=== PATIENT | male | born 1955 | race Caucasian/White ===

== ENCOUNTER 2024-08-24 09:53 | Outpatient (OUT) | payer MEDICARE, SELFPAY ==
[2024-08-24 10:21] LABS: Basophils Percent Auto 0.4 % (0.2-2.0); Eosinophils Absolute Auto 0.6 10^3/uL (0.0-0.7); Eosinophils Percent Auto 7.1 % (0.9-7.0); Hematocrit 44.3 % (42.0-54.0); Immature Granulocytes Abs Auto 0.03 10^3/uL (0.00-0.03); Immature Granulocytes Pct Auto 0.4 % (0.0-0.5); Lymphocytes Absolute Auto 0.8 10^3/uL (1.2-3.8); Lymphocytes Percent Auto 10.4 % (20.5-60.0); Mean Corpuscular HGB Conc 33.9 g/dL (29.9-35.2); Mean Corpuscular Hemoglobin 31.3 pg (25.9-34.0); Mean Corpuscular Volume 92.5 fL (80.0-94.0); Mean Platelet Volume 10.1 fL (9.5-13.5); Monocytes Absolute Auto 0.7 10^3/uL (0.3-0.8); Neutrophils Absolute Auto 5.7 10^3/uL (1.4-6.5); Neutrophils Percent Auto 72.7 % (43.0-75.0); Platelet Count 197 10^3/uL (150-450); Red Blood Count 4.79 10^6/uL (4.70-6.10); White Blood Count 7.8 10^3/uL (4.0-11.0)
[2024-08-24 10:36] LABS: Anion Gap 11.5; BUN Creatinine Ratio 16.3; Calcium 9.3 mg/dL (8.5-10.1); Carbon Dioxide 26.8 mmol/L (21.0-32.0); Chloride 109 mmol/L (98-107); Estimated GFR (African America >60 (>=60 mL/min/1.73m^2); Estimated GFR (Non-African Ame >60 (>=60 mL/min/1.73m^2); Glucose 120 mg/dL (74-106); Potassium 4.3 mmol/L (3.5-5.1); Sodium 143 mmol/L (136-145)
== END 2024-08-24 09:54 | disposition home or self-care (01) ==
PROVIDERS: PCP Nurse Practitioner Family; Visit Provider Internal Medicine Interventional Cardiology
DX: Z01.812 Encounter for preprocedural laboratory examination (principal); Z01.818 Encounter for other preprocedural examination
CPT/HCPCS: 36415; 80048; 85025

== ENCOUNTER 2024-09-06 20:24 | Emergency (ER) | payer MEDICARE, SELFPAY ==
[2024-09-06 20:36] VITALS: BP 148/88; PULSE 78; TEMP 36.8; O2SAT 98; BMI 28.8
--- NOTE | 2024-09-06 20:57 | CT_ITS ---
The [address] [address] Patient Name: VICKIE KING MRN: [id number] date: 1955 Sex: M Assigned Patient Location: ER Current Patient Location: ED.MAIN Accession/Order Number: [id number] Exam Date: 09/06/2024 21:18 Report Date: 09/06/2024 22:41 At the request of: CARLOS NORMAN Procedure: CT abdomen pelvis wo con EXAMINATION:CT abdomen pelvis wo con INDICATION:left renal colic COMPARISON:A report from a prior CT abdomen and pelvis dated 09/08/2008 is available for correlation. The images are not available for direct comparison. TECHNIQUE:Multiple thin section transaxial slices were acquired through the abdomen and pelvis without intravenous contrast. Coronal and sagittal reconstructed images were reviewed. Oral contrastWas not administered. FINDINGS: LOWER CHEST: Atelectasis and chronic interstitial scarring are present in the lung bases. LIVER: The liver is unremarkable. GALLBLADDER AND BILIARY SYSTEM: No obvious ductal dilation. No calcified stones. SPLEEN: The spleen is unremarkable. PANCREAS: The pancreas is unremarkable. ADRENAL GLANDS: The adrenal glands are unremarkable. KIDNEYS AND URETERS: There is mild left-sided hydronephrosis secondary to a 4 mm size calculus located at the left ureterovesical junction. There is no right hydronephrosis. The right ureter is within normal limits.Right renal cysts are present. Is a large cyst in the right upper kidney measuring 8.0 cm. There are nonobstructive bilateral intrarenal calculi. VASCULATURE: Ureters are within normal limits without obstructing urologic calcifications. PERITONEUM/RETROPERITONEUM: There is no free air or free fluid. There is mesenteric fat stranding in the root of the mesentery. This was described in previous report from 2007 and is chronic. LYMPH NODES: No suspicious lymphadenopathy. GASTROINTESTINAL TRACT: The bowel is normal in caliber.There is chronic colonic diverticulosis of the colon without acute inflammation.The appendix is visualized and is not inflamed. BLADDER: The urinary bladder is unremarkable. REPRODUCTIVE SYSTEM: Reproductive system is unremarkable. BODY WALL: There is a tiny fat-containing umbilical hernia. BONES: There is degenerative disc disease in the thoracolumbar spine. CT/CT abdomen pelvis wo con IMPRESSION: Mild left-sided hydronephrosis is present secondary to a 4 mm size calculus located at the left ureterovesical junction. Electronically authenticated by: DALILA IBARRA Date: 09/06/2024 22:41
--- NOTE | 2024-09-06 20:57 | ED.ABDPAIN1 ---
HPI - Abdominal Pain General Chief Complaint: Abdominal Pain Stated Complaint: kidney stone Time Seen by Provider: 09/06/24 20:55 Source: patient Mode of arrival: walk-in History of Present Illness HPI narrative: history of kidney stones. Presents complaining of left CVA pain within the hour associated with recurrent vomiting. No dysuria or hematuria or fever. Related Data Allergies Allergy/AdvReac Type Severity Reaction Status Date / Time No Known Drug Allergies Allergy Verified 09/06/24 20:36 Review of Systems ROS Status of ROS 10 or more systems reviewed and unremarkable except as noted in history and below Exam Constitutional Vital Signs, click to edit/add: Last Vital Signs Temp 98.3 F 09/06/24 20:36 Pulse 46 L 09/07/24 00:26 Resp 14 09/07/24 00:26 BP 144/75 H 09/07/24 00:26 Pulse Ox 97 09/07/24 00:26 O2 Del Method Room Air 09/07/24 00:26 Common normals: no apparent distress, average body habitus, oriented x3, no limitations, healthy appearing, alert and well nourished HENMT Common normals: normocephalic and head/scalp atraumatic Eye Common normals: EOMs intact bilaterally and conjunctivae normal Respiratory Common normals: normal respiratory effort, no retractions and no use of accessory muscles Back & Pelvis Other: left CVA tenderness Extremity Common normals: normal to inspection and full ROM Neuro Common normals: oriented x3, CN's II-XII intact bilaterally, moves all extremities and no focal motor deficits Psych Appearance: grossly normal Course Vital Signs Vital signs: Vital Signs Temperature 98.3 F 09/06/24 20:36 Pulse Rate 78 09/06/24 20:36 Respiratory Rate 18 09/06/24 20:36 Blood Pressure 148/88 H 09/06/24 20:36 Pulse Oximetry 98 09/06/24 20:36 Oxygen Delivery Method Room Air 09/06/24 20:36 Temperature 98.3 F 09/06/24 20:36 Pulse Rate 46 L 09/07/24 00:26 Respiratory Rate 14 09/07/24 00:26 Blood Pressure 144/75 H 09/07/24 00:26 Pulse Oximetry 97 09/07/24 00:26 Oxygen Delivery Method Room Air 09/07/24 00:26 MDM - Abdominal Pain MDM Narrative Medical decision making narrative: patient presents with left renal colic. intense pain and recurrent vomiting. Treated with opiates and toradol . CT with finding of 4mm stone at UVJ. Patient is feeling better at this point. Lactic elevated as expected. UA pending. UA without evidence of infection. Patient is now resting comfortably. Latic was elevated from recurrent vomiting. 2nd lactic pending after hydration. Anticipate discharge home once 2nd lactic results 2nd lactic returned and is normal. Patient resting comfortably after last treatment for pain. Discharged in improved condition Lab Data Labs: Lab Results 09/06/24 09/06/24 09/06/24 Range/Units 21:10 23:30 23:58 WBC 12.7 H (4.0-11.0) 10^3/uL RBC 4.79 (4.70-6.10) 10^6/uL Hgb 14.7 (14.0-18.0) g/dL Hct 43.2 (42.0-54.0) % MCV 90.2 (80.0-94.0) fL MCH 30.7 (25.9-34.0) pg MCHC 34.0 (29.9-35.2) g/dL RDW 12.9 (11.0-15.0) % Plt Count 184 (150-450) 10^3/uL MPV 10.2 (9.5-13.5) fL Neut % (Auto) 81.9 H (43.0-75.0) % Lymph % (Auto) 8.0 L (20.5-60.0) % [place] % (Auto) 7.5 (1.7-12.0) % Eos % (Auto) 2.2 (0.9-7.0) % Baso % (Auto) 0.2 (0.2-2.0) % Neut # (Auto) 10.4 H (1.4-6.5) 10^3/uL Lymph # (Auto) 1.0 L (1.2-3.8) 10^3/uL [place] # (Auto) 1.0 H (0.3-0.8) 10^3/uL Eos # (Auto) 0.3 (0.0-0.7) 10^3/uL Baso # (Auto) 0.0 (0.0-0.1) 10^3/uL Abs Immat Gran (auto) 0.03 (0.00-0.03) 10^3/uL Imm/Tot Granulo (auto) 0.2 (0.0-0.5) % Sodium 141 (136-145) mmol/L Potassium 3.7 (3.5-5.1) mmol/L Chloride 106 (98-107) mmol/L Carbon Dioxide 19.7 L (21.0-32.0) mmol/L Anion Gap 19.0 BUN 19.0 H (7.0-18.0) mg/dL Creatinine 1.22 (0.70-1.30) mg/dL Est GFR ( Amer) >60 (>=60 mL/min/1.73m^2) Est GFR (Non-Af Amer) 59 L (>=60 mL/min/1.73m^2) BUN/Creatinine Ratio 15.6 Glucose 119 H (74-106) mg/dL Lactate 3.2 H* 1.6 (0.4-2.0) mmol/L Calcium 9.2 (8.5-10.1) mg/dL Total Bilirubin 0.6 (0.2-1.0) mg/dL AST 46 H (15-37) U/L ALT 41 (16-63) U/L Alkaline Phosphatase 101 (46-116) U/L Total Protein 7.6 (6.4-8.2) g/dL Albumin 4.3 (3.4-5.0) g/dL Globulin 3.3 g/dL Albumin/Globulin Ratio 1.3 Urine Color Lt. yellow (YELLOW) Urine Clarity Clear (CLEAR) Urine pH 5.5 (5.0-9.0) Ur Specific [place] 1.020 (1.005-1.025) Urine Protein Negative (NEG/TRACE) mg/dL Urine Glucose (UA) Negative (NEGATIVE) mg/dL Urine Ketones Trace A (NEGATIVE) mg/dL Urine Occult Blood Large A (NEGATIVE) Urine Nitrite Negative (NEGATIVE) Urine Bilirubin Negative (NEGATIVE) Urine Urobilinogen 0.2 (0.2-1.0) EU/dL Ur Leukocyte Esterase Negative (NEGATIVE) Urine RBC 5-10 A (0-2) #/HPF Urine WBC None seen (NONE SEEN) #/HPF Ur Squamous Epith Cells Rare (NONE/RARE) #/LPF Urine Crystals Seen A (None Seen) #/HPF Amorphous Sediment Rare Urine Bacteria Trace A (NONE SEEN) #/HPF Urine Casts None seen (NONE SEEN) #/LPF Urine Mucus None seen (NONE SEEN) Ur Culture Indicated? No Imaging Data Abdominal x-ray: Radiologist's impression: ITS Impressions Abdomen/Pelvis CT 09/06/24 20:57 IMPRESSION: Mild left-sided hydronephrosis is present secondary to a 4 mm size calculus located at the left ureterovesical junction. Electronically authenticated by: DALILA IBARRA Date: 09/06/2024 22:41 Chest x-ray: Radiologist's impression: ITS Impressions Abdomen/Pelvis CT 09/06/24 20:57 IMPRESSION: Mild left-sided hydronephrosis is present secondary to a 4 mm size calculus located at the left ureterovesical junction. Electronically authenticated by: DALILA IBARRA Date: 09/06/2024 22:41 Discharge Plan Discharge Chief Complaint: Abdominal Pain Clinical Impression: Calculus of kidney Patient Disposition: Home, Self-Care Print Language: Vietnamese Instructions: Kidney Stones (ED) Referrals: KEIKO HADDAD [Primary Care Provider] - 1 week
[2024-09-06 21:17] LABS: Basophils Percent Auto 0.2 % (0.2-2.0); Eosinophils Absolute Auto 0.3 10^3/uL (0.0-0.7); Eosinophils Percent Auto 2.2 % (0.9-7.0); Hematocrit 43.2 % (42.0-54.0); Hemoglobin 14.7 g/dL (14.0-18.0); Immature Granulocytes Abs Auto 0.03 10^3/uL (0.00-0.03); Immature Granulocytes Pct Auto 0.2 % (0.0-0.5); Mean Corpuscular Hemoglobin 30.7 pg (25.9-34.0); Mean Corpuscular Volume 90.2 fL (80.0-94.0); Mean Platelet Volume 10.2 fL (9.5-13.5); Monocytes Percent Auto 7.5 % (1.7-12.0); Neutrophils Absolute Auto 10.4 10^3/uL (1.4-6.5); Neutrophils Percent Auto 81.9 % (43.0-75.0); Platelet Count 184 10^3/uL (150-450); Red Blood Count 4.79 10^6/uL (4.70-6.10); Red Cell Distribution Width 12.9 % (11.0-15.0); White Blood Count 12.7 10^3/uL (4.0-11.0)
[2024-09-06] MEDS: 0.9 % SODIUM CHLORIDE 1,000 ML 999 ML IV (21:25)
[2024-09-06] MEDS: ONDANSETRON PF 4 MG/2 ML VIAL IV (21:26)
[2024-09-06] MEDS: FENTANYL CITRATE/PF 100 MCG/2 ML VIAL 50 MCG IV (21:34)
[2024-09-06] MEDS: KETOROLAC TROMETHAMINE 30 MG/ML VIAL IVP (21:34)
[2024-09-06 21:44] LABS: Alanine Aminotransferase 41 U/L (16-63); Albumin Globulin Ratio 1.3; Albumin Level 4.3 g/dL (3.4-5.0); Alkaline Phosphatase 101 U/L (46-116); Aspartate Amino Transferase 46 U/L (15-37); BUN Creatinine Ratio 15.6; Bilirubin Total 0.6 mg/dL (0.2-1.0); Calcium 9.2 mg/dL (8.5-10.1); Carbon Dioxide 19.7 mmol/L (21.0-32.0); Chloride 106 mmol/L (98-107); Estimated GFR (African America >60 (>=60 mL/min/1.73m^2); Estimated GFR (Non-African Ame 59 (>=60 mL/min/1.73m^2); Globulin 3.3 g/dL; Glucose 119 mg/dL (74-106); Potassium 3.7 mmol/L (3.5-5.1); Sodium 141 mmol/L (136-145); Total Protein 7.6 g/dL (6.4-8.2)
[2024-09-06 21:45] LABS: Lactate/Lactic Acid 3.2 mmol/L (0.4-2.0)
[2024-09-06] MEDS: HYDROMORPHONE HCL 1 MG/ML CARTRIDGE IV (21:48)
[2024-09-06 21:53] VITALS: BP 129/72; PULSE 56; O2SAT 97
[2024-09-06 23:35] LABS: Bilirubin Urine NEGATIVE (NEGATIVE); Blood Urine LARGE (NEGATIVE); Clarity Urine CLEAR (CLEAR); Color Urine LT. YELLOW (YELLOW); Glucose Urine UA NEGATIVE (NEGATIVE); Ketones Urine TRACE mg/dL (NEGATIVE); Leukocyte Esterase Urine NEGATIVE (NEGATIVE); Nitrite Urine NEGATIVE (NEGATIVE); Protein Urine NEGATIVE (NEG/TRACE); Urobilinogen Urine 0.2 EU/dL (0.2-1.0); pH Urine 5.5 (5.0-9.0)
[2024-09-06 23:37] LABS: Urine Microscopic Indicated YES
[2024-09-06 23:42] LABS: Amorphous Sediment Urine RARE; Bacteria Urine TRACE #/HPF (NONE SEEN); Cast Seen? NONE SEEN #/LPF (NONE SEEN); Crystals Seen? Seen #/HPF (None Seen); Mucus Urine NONE SEEN (NONE SEEN); Squamous Epithelial Cell Urine RARE #/LPF (NONE/RARE); Urine Culture Indicated NO; WBC Urine NONE SEEN #/HPF (NONE SEEN)
[2024-09-07] MEDS: 0.9 % SODIUM CHLORIDE 1,000 ML 999 ML IV (00:20)
[2024-09-07] MEDS: PROMETHAZINE HCL 25 MG in 0.9 % SODIUM CHLORIDE 50 ML 204 MG IV (00:20)
[2024-09-07 00:21] LABS: Lactate/Lactic Acid 1.6 mmol/L (0.4-2.0)
[2024-09-07] MEDS: HYDROMORPHONE HCL 0.5 MG/0.5 ML SYRINGE IV (00:21)
[2024-09-07 00:26] VITALS: BP 144/75; PULSE 46; O2SAT 97
[2024-09-07] MEDS: ONDANSETRON 4 MG RAPDIS TABLET SL (01:24)
[2024-09-07] MEDS: HYDROCODONE/ACET 5-325 MG TABLET 4 TAB PO (01:25)
[2024-09-07 01:26] VITALS: BP 145/69; PULSE 50; O2SAT 97
--- OUTSIDE RECORDS SUMMARY | 2024-09-09 03:33 | XMS_ITS | CCD ---
Author Organization [facility] Care Team Providers Care Dental Coordinator Name Role Phone WAYLON PADILLA Referring Unavailable BRUHL, WAYLON Referring Unavailable NILL, DR JOHNSTON Consulting Unavailable NILL, DR JOHNSTON Admitting Unavailable BOO, SUDHA Primary Care Unavailable NILL, DR JOHNSTON Attending Unavailable CAMILA FAGAN Consulting Unavailable REQUEST, NONE LISTED Primary Care Unavaila ble BOO, SUDHA Attending Unavailable BOO, SUDHA Admitting Unavailable NILL, DR JOHNSTON Attending Unavailable NILL, DR JOHNSTON Consulting Unavailable REQUEST, DR RAMEY LISTED Primary Care Unavaila ble NILL, DR JOHNSTON Admitting Unavailable NILL, DR JOHNSTON Consulting Unavailable REQUEST, DR RAMEY LISTED Primary Care Unavaila ble NILL, DR JOHNSTON Admitting Unavailable NILL, DR JOHNSTON Attending Unavailable [place], EHAB Attending Unavailable Problems Active Problems Problem Classification Problem Date Documented Date Episodic/Chronic Coronary atherosclerosis and other heart disease (4 sources) Old myocardial infarction; Translations: [Atherosclerotic heart disease of n[place] coronary artery without angina pectoris] Onset: 2 Chronic Disorders of lipid metabolism (1 source) Pure hypercholesterolemia, unspecified; Translations: [PURE HYPERCHOLESTEROLEMIA UNSPEC] Onset: 2 Chronic Diverticulosis and diverticulitis (1 source) Diverticulosis of large intestine without perforation or abscess without bleeding; Translations: [DVRTCLOS LG INT NO PERF/ABSC W/O BL] Onset: 2 Chronic Hyperplasia of prostate (1 source) Benign prostatic hyperplasia without lower urinary tract symptoms; Translations: [BENIGN PROSTATIC HYPRPLASIA WO LUTS] Onset: 2 Chronic Nonspecific chest pain (2 sources) Other chest pain; Translations: [Other chest pain] Onset: 4 Episodic Unclassified (1 source) PERSONAL HISTORY OF COVID-19; Translations: [PERSONAL HISTORY OF COVID-19] Onset: 2 Unclassified (3 sources) CONTACT W/AND (SUSP) EXPOS COVID-19; Translations: [CONTACT W/AND (SUSP) EXPOS COVID-19] Onset: 1 Unclassified (1 source) 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; Translations: [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] Onset: 4 Viral infection (1 source) COVID-19; Translations: [COVID-19] Onset: 1 Past or Other Problems Problem Classification Problem Date Documented Date Episodic/Chronic Coronary atherosclerosis and other heart disease (1 source) Presence of coronary angioplasty implant and graft; Translations: [PRESENCE COR ANGPLSTY IMPLANT AND GRAFT] Onset: 11-15-2021 Episodic Other aftercare (1 source) 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; 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] Onset: 11-15-2021 Episodic Other and unspecified benign neoplasm (1 source) Benign neoplasm of rectum; Translations: [BENIGN NEOPLASM OF RECTUM] Onset: 11-15-2021 Episodic Other screening for suspected conditions (not mental disorders or infectious disease) (4 sources) Encounter for screening for malignant neoplasm of colon; Translations: [ENC SCREEN MALIG NEOPLASM COLON] Onset: 10-27-2021 Episodic Screening and history of mental health and substance abuse codes (1 source) Personal history of nicotine dependence; Translations: [PERSONAL HISTORY OF NICOTINE DEPEND] Onset: 11-15-2021 Episodic Unclassified (1 source) CONTACT W/AND (SUSP) EXPOS COVID-19; Translations: [CONTACT W/AND (SUSP) EXPOS COVID-19] Onset: 07-31-2021 Unclassified (1 source) 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; Translations: [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] Onset: 08-21-2024 Results Test Name Value Interpretation Reference Range Facility Office Visiton 08-21-2024 Follow-up visit [id number] Vickie King 1955 M Date Provider Department Center 08/21/2024 271-JOSE YOUNG CARD [facility] Family History Problem Relation Age of Onset Stroke Father Family Status - Relation Status Age at Father Level of Service:15681 [place] OFFICE/OUTPATIENT NEW HIGH MDM 60 MINUTES Normal [facility] Orders Onlyon 08-21-2024 Orders Only [id number] Vickie King 1955 M Date Provider Department Center 08/21/2024 HENRIETTA NICHOLE LORY [facility] Family History Problem Relation Age of Onset Stroke Father Family Status - Relation Status Age at Father Normal [facility] Reminderson 11-11-2021 Reminders - From: Kaci Stern LPN To: N - Clinical; Sent: 11/11/2021 08:00:09 EST Show up: 09/27/2031 08:00:00 EST Subject: colonoscopy recall Due Date/Time: 10/27/2031 08:00:00 EST Reminder/Recall Patient is due for screening colonoscopy 10/27/2031. Normal [facility] Ambulatory Clinical Summaryo n 11-10-2021 Ambulatory Clinical Summary {[id number] }[id number] Normal [facility] General Surgery Office/Clini c Noteon 11-10-2021 General Surgery Office/Clinic Note Chief Complaint post operative follow up HPI Staff 14 day post operative follow up post colonoscopy with rectal polypectomy. History of Present Illness 2 weeks s/p screening colonoscopy with rectal polypectomy, hyperplastic polyp; also moderated sigmoid diverticulosis; doing well, denies pain or blood in stools. Review of Systems ROS - Provider Constitutional: no fever, no sweats, no weight loss. Eyes: no glasses, no blurred vision, no visual loss. ENMT: no dentures, no hoarseness, no swallowing difficulties, no hearing loss, no ear infection(s), no nose bleeds. Cardiovascular: normal blood pressure, no chest pain, regular heartbeat, no heart murmur. Respiratory: no shortness of breath, no cough, no asthma, no wheezing. Gastrointestinal: no nausea, no vomiting, no diarrhea, no constipation, no blood in stool, no change in bowel habits, no abdominal pain, no hepatitis. Genitourinary: no kidney stones, no urine infection, no dysuria. Musculoskeletal: no pain, no weakness. Skin: no changing moles, no rash, no skin lumps. Neurologic: no seizures, no epilepsy, no headache. Psychiatric: no emotional or psychiatric problem. Heme/Lymph: no bleeding problems, no anemia, no blood clots, no transfusions. Allergy/Immunologic: no swollen lymph nodes/glands, no IV drug abuse. Other: Additional ROS info: Except as noted in the above Review of Systems and in the History of Present Illness, all other systems have been reviewed and are negative or noncontributory. Physical Exam Vitals & Measurements T: 36.2 ?C(Temporal Artery) Assessment/Plan 1. Diverticulosis of sigmoid colon (K57.30: Diverticulosis of large intestine without perforation or abscess without bleeding) recommend high fiber diet and daily fiber supplement; f/u screening colonoscopy in 10 years, call sooner if problems/questions. Follow-up No qualifying data available Problem List/Past Medical History Ongoing BPH (benign prostatic hyperplasia) CAD (coronary artery disease) Diverticulosis of sigmoid colon Erectile dysfunction Hx of heart artery stent Lumbago Myocardial infarction Screening for malignant neoplasm of colon Historical Kidney stone Tonsil Procedure/Surgical History Colonoscopy (10/27/2021), Placement of stent in cardiac conduit (2011), Tonsil (1963), Kidney stone. Medications Lipitor 80 mg Tab, 80 mg= 1 tab(s), Oral, Once a day (at bedtime) naproxen sodium 550 mg Tab, 550 mg= 1 tab(s), Oral, BID nitroglycerin 0.4 mg sublingual Tab, See Instructions, PRN sildenafil 50 mg Tab, See Instructions Xarelto 2.5 mg oral tablet, 2.5 mg= 1 tab(s), Oral, BID Ziac 2.5 mg-6.25 mg oral tablet, 1 tab(s), Oral, Daily Allergies No Known Allergies Social History Alcohol - Low Risk, 12/11/2013 Current, Beer, 1-2 times per month, 12/11/2013 Employment/School - Low Risk, 12/11/2013 Substance Abuse - Denies Substance Abuse, 06/30/2021 Tobacco - No Risk, 12/11/2013 Former smoker, quit more than 30 days ago Tobacco Use:., 06/30/2021 Family History Stroke: Father. Normal [facility] Comment on above: Result Comment: Elec tronically Signed By: STONE COLBY, Vickie Valentino\Date and Time Signed: 11/10/21 14:19 EST Pathology Noteon 11-02-2021 Pathology Note [id number]:1 27 Normal [facility] Outside Colonoscopyon 2020 Outside Colonoscopy [id number]: 127 Normal [facility] Lab Reportson 10-27-2021 Lab Reports [id number]:1 27 Normal [facility] Covid-19 PCR ([facility])on 10-07 SARS-CoV-2 (COVID-19) RNA SIERRA+probe Ql (Unsp spec) Not detected Normal NOT DETECTED [facility] Comment on above: Result Comment: This test is not yet approved or cleared by the [place] FDA. When there are no FDA-approved or cleared tests available, and other criteria are met, FDA can make tests available under an emergency access mechanism called an Emergency Use Authorization (EUA). The EUA for this test is supported by the [place] of Health and Human Service's (HHS's) declaration that circumstances exist to justify the emergency use of in vitro diagnostics for the detection and/or diagnosis of the virus that causes COVID-19. This EUA will remain in effect (meaning this test can be used) for the duration of the COVID-19 declaration justifying emergency of IVDs, unless it is terminated or revoked by FDA (after which the test may no longer be used). When diagnostic testing is negative, the possibility of a false negative should be considered in the context of a patient's recent exposures and the presence of clinical signs and symptoms consistent with SARS-CoV-2. Performed By: #### C VDTB #### [facility] [address] [place] [address] Dr. Cyndie Delgadillo Lab Reportson 08-03-2021 Lab Reports [id number]: 127 Normal [facility] Covid-19 PCR ([facility])on 07-08 SARS-CoV-2 (COVID-19) RNA SIERRA+probe Ql (Unsp spec) Detected Critically abnormal NOT DETECTED [facility] Comment on above: Result Comment: This test is not yet approved or cleared by the [place] FDA. When there are no FDA-approved or cleared tests available, and other criteria are met, FDA can make tests available under an emergency access mechanism called an Emergency Use Authorization (EUA). The EUA for this test is supported by the [place] of Health and Human Service's (HHS's) declaration that circumstances exist to justify the emergency use of in vitro diagnostics for the detection and/or diagnosis of the virus that causes COVID-19. This EUA will remain in effect (meaning this test can be used) for the duration of the COVID-19 declaration justifying emergency of IVDs, unless it is terminated or revoked by FDA (after which the test may no longer be used). Performed By: #### [facility] #### [facility] [address] [place] [address] Dr. Cyndie Delgadillo Consent for Procedure/Surger yon 07-01-2021 Consent for Procedure/Surgery [id number]:1 27 Normal [facility] Ambulatory Clinical Summaryo n 06-30-2021 Ambulatory Clinical Summary {[id number] }[id number] Normal [facility] General Surgery Office/Clini c Noteon 06-30-2021 General Surgery Office/Clinic Note HPI Staff New pt., referred by ANNETTE Aranda for screening colonoscopy . No family hx of colon ca. Patient is on Xarelto History of Present Illness 65 yo male with h/o CAD, s/p angioplasty with stenting in 2013, on Xarelto; hypercholesterolemia, htn, referred for colorectal screening; denies change in bms or blood in stools, no abdominal complaints; no previous colonoscopy or abdominal operations; on Xarelto and baby asa; no SBE prophylaxis, no fmhx of GI malignancy or IBD. Review of Systems PHQ Score Initial Depression Screen Score: 0 ROS - Provider Constitutional: no fever, no sweats, no weight loss. Eyes: no glasses, no blurred vision, no visual loss. ENMT: no dentures, no hoarseness, no swallowing difficulties, no hearing loss, no ear infection(s), no nose bleeds. Cardiovascular: high blood pressure, no chest pain, regular heartbeat, no heart murmur. Respiratory: no shortness of breath, no cough, no asthma, no wheezing. Gastrointestinal: no nausea, no vomiting, no diarrhea, no constipation, no blood in stool, no change in bowel habits, no abdominal pain, no hepatitis. Genitourinary: no kidney stones, no urine infection, no dysuria. Musculoskeletal: no pain, no weakness. Skin: no changing moles, no rash, no skin lumps. Neurologic: no seizures, no epilepsy, no headache. Psychiatric: no emotional or psychiatric problem. Heme/Lymph: no bleeding problems, no anemia, no blood clots, no transfusions. Allergy/Immunologic: no swollen lymph nodes/glands, no IV drug abuse. Other: Additional ROS info: Except as noted in the above Review of Systems and in the History of Present Illness, all other systems have been reviewed and are negative or noncontributory. Physical Exam Vitals & Measurements T: 36.4 ?C (Temporal Artery) HR: 73(Peripheral) RR: 16 BP: 130/82 SpO2: 97% HT: 177.8 cm HT: 177.80 cm WT: 99.1 kg WT: 99.1 kg BMI: 31.35 HEENT: normal conjunctiva, sclera clear, no scleral icterus, EOM intact, PERRLA, oral mucosa moist without lesions. Neck: trachea midline, no mass, symmetric, no thyromegaly or nodules, no adenopathy Respiratory: lungs CTA, respirations non labored. Cardiovascular: regular rate and rhythm, no murmur, no pedal edema or varicosities. Gastrointestinal: soft, non distended, no tenderness, no masses, no palpable hernias, diastasis recti no, no hepatosplenomegaly; normal bs Lymphatic: no cervical adenopathy, Musculoskeletal: normal gait, digits and nails without infection, nodes, cyanosis, clubbing. Skin: no rashes, no lesions, no ulcers, no subcutaneous nodules, induration. Psychiatric/Neuro: oriented to time, place, person, judgement normal, affect appropriate for age, insight intact, no focal deficits. Tests: review of old records completed, Discussed surgical options, risks, and possible complications with patient. Assessment/Plan 1. Screening for malignant neoplasm of colon (Z12.11: Encounter for screening for malignant neoplasm of colon) plan colonoscopy under anesthesia, informed consent obtained. hold Xarelto 2 days prior to procedure. Follow-up No qualifying data available Patient Education Colonoscopy, Adult, Care After, [id number] Problem List/Past Medical History Ongoing BPH (benign prostatic hyperplasia) CAD (coronary artery disease) Erectile dysfunction Hx of heart artery stent Lumbago Myocardial infarction Screening for malignant neoplasm of colon Historical Kidney stone Tonsil Procedure/Surgical History Placement of stent in cardiac conduit (2011), Tonsil (1963), Kidney stone. Medications Lipitor 80 mg Tab, 80 mg= 1 tab(s), Oral, Once a day (at bedtime) naproxen sodium 550 mg Tab, 550 mg= 1 tab(s), Oral, BID nitroglycerin 0.4 mg sublingual Tab, See Instructions, PRN sildenafil 50 mg Tab, See Instructions Xarelto 2.5 mg oral tablet, 2.5 mg= 1 tab(s), Oral, BID Ziac 2.5 mg-6.25 mg oral tablet, 1 tab(s), Oral, Daily Allergies No Known Allergies Social History Alcohol - Low Risk, 12/11/2013 Current, Beer, 1-2 times per month, 12/11/2013 Employment/School - Low Risk, 12/11/2013 Substance Abuse - Denies Substance Abuse, 06/30/2021 Tobacco - No Risk, 12/11/2013 Former smoker, quit more than 30 days ago Tobacco Use:., 06/30/2021 Family History Stroke: Father. Normal [facility] Comment on above: Result Comment: Elec tronically Signed By: STONE COLBY, Vickie Valentino\Date and Time Signed: 06/30/21 16:38 EDT Patient Educationon 06-30-20 Patient Education Radiology Colonoscopy, Adult, Care After This sheet gives you information about how to care for yourself after your procedure. Your doctor may also give you more specific instructions. If you have problems or questions, call your doctor. What can I expect after the procedure? After the procedure, it is common to have: ? A small amount of blood in your poop for 24 hours. ? Some gas. ? Mild cramping or bloating in your belly. Follow these instructions at home: General instructions ? For the first 24 hours after the procedure: ? Do not drive or use machinery. ? Do not sign important documents. ? Do not drink alcohol. ? Do your daily activities more slowly than normal. ? Eat foods that are soft and easy to digest. ? Take lkxd-wri-jfjsswg or prescription medicines only as told by your doctor. To help cramping and bloating: ? Try walking around. ? Put heat on your belly (abdomen) as told by your doctor. Use a heat source that your doctor recommends, such as a moist heat pack or a heating pad. ? Put a towel between your skin and the heat source. ? Leave the heat on for 20?30 minutes. ? Remove the heat if your skin turns bright red. This is especially important if you cannot feel pain, heat, or cold. You can get burned. Eating and drinking ? Drink enough fluid to keep your pee (urine) clear or pale yellow. ? Return to your normal diet as told by your doctor. Avoid heavy or fried foods that are hard to digest. ? Avoid drinking alcohol for as long as told by your doctor. Contact a doctor if: ? You have blood in your poop (stool) 2?3 days after the procedure. Get help right away if: ? You have more than a small amount of blood in your poop. ? You see large clumps of tissue (blood clots) in your poop. ? Your belly is swollen. ? You feel sick to your stomach (nauseous). ? You throw up (vomit). ? You have a fever. ? You have belly pain that gets worse, and medicine does not help your pain. Summary ? After the procedure, it is common to have a small amount of blood in your poop. You may also have mild cramping and bloating in your belly. ? For the first 24 hours after the procedure, do not drive or use machinery, do not sign important documents, and do not drink alcohol. ? Get help right away if you have a lot of blood in your poop, feel sick to your stomach, have a fever, or have more belly pain. This information is not intended to replace advice given to you by your health care provider. Make sure you discuss any questions you have with your health care provider. Document Released: 11/25/2011 Document Revised: 08/23/2018 Document Reviewed: 07/17/2017 HAUL Patient Education ? 2019 [facility] Physician Referralon 021 Physician Referral [id number]: 127 Normal [facility] CARDIAC STRESS TESTon 2018 CARDIAC STRESS TEST [address] [address] CARDIAC STRESS TEST PATIENT NAME: KRYSTLE KING : 1955 MED REC NO: [id number] ROOM: ACCOUNT NO: [id number] ADMIT DATE: 04/25/2019 PROVIDER: Lakisha Mitchell CARDIOVASCULAR DIAGNOSTIC DEPARTMENT DATE OF STUDY: 04/25/2019 ORDERING PROVIDER: Waylon Padilla MD PRIMARY CARE PROVIDER: None listed INTERPRETING PHYSICIAN: Lakisha Mitchell MD EXERCISE STRESS TEST REPORT Stress, exercise stress. INDICATIONS: Assessment of chest pain and/or chest discomfort. Assessment of a cardiac cause: Abnormal ECG. CLINICAL HISTORY: The patient is a 63-year-old man with known coronary artery disease. Previous cardiac history includes: CAD, stress test, cardiac catheterization, PTCA, myocardial infarction. Other previous history includes: Arthritis, alcohol, caffeine Symptoms just prior to testing include: None. Relevant medications: Bisoprolol. PROCEDURE: The patient performed treadmill exercise using a Kenrick protocol, completing 10:04 minutes and completing an estimated workload of 11.8 metabolic equivalents (METS). The test was terminated due to shortness of breath. The heart rate was 54 beats per minute at baseline and increased to 121 beats at peak exercise, which was 77% of the maximum predicted heart rate. The rest blood pressure was 108/76 mm/Hg and increased to 170/72 mm/Hg, which is a normal response. During the procedure, the patient developed fatigue and shortness of breath but denied chest discomfort. STRESS ECG RESULTS: The resting electrocardiogram demonstrated normal sinus rhythm without definitive ST-segment abnormalities suggestive of myocardial ischemia. At peak exercise and during recovery, the patient developed: No significant ST segment changes suggestive of myocardial ischemia with no premature atrial contractions (PACs) and no premature ventricular contractions (PVCs). IMPRESSION: 1. Only 77% of the maximum heart rate achieved. Heart rate response probably blunted by beta branden therapy. 2. No chest pain at peak exercise or during recovery. 3. No significant electrocardiographic evidence of myocardial ischemia during EKG monitoring without significant associated arrhythmias. Overall these results are most consistent with a low risk stress test. The sensitivity for detecting ischemia on this test may have been reduced due to the patient being on a beta branden. LAKISHA MITCHELL LARON/RACHEL_BECKY Job#: [id number] Doc#: Unknown CC: Waylon Padilla [facility] Encounters Encounter Date Encounter Type Care Provider Facility Start: 08-21-2024 End: 08-21-2024 ambulatory [facility] Start: 07-06-[address] TANVIR VACA REQUEST Facility:[facility] Start: 11-01-2021 Encounter for preprocedural laboratory examination DR VICKIE RITTER [facility] Start: 10-27-2021 End: 10-27-[address] VICKIE RITTER Facility:[facility] Start: 10-25-2021 End: 10-26-[address] VICKIE RITTER Facility:[facility] Start: 10-25-2021 End: 10-26-2021 Encounter for preprocedural laboratory examination DR VICKIE RITTER Facility:[facility] Start: 07-31-2021 End: 08-01-[address] VICKIE RITTER Facility:[facility] Start: 04-25-2019 End: 04-26-2019 Patient encounter procedure WAYLON PADILLA [facility] Procedures Date Procedure Procedure Detail Performing Clinician Start: 04-25-2019 Echo tthrc r-t 2d w/ wom-mode compl spec&colr d WAYLON PADILLA Start: 04-25-2019 Cv strs tst xers&/or rx cont ecg w/o i&r WAYLON PADILLA Payers Date Payer Category Payer Medicare [id number] 1960 Self-pay [id number] 1960 Unknown [id number] 1955 Unknown [id number] 2.16.8 [id number] 1955 Unknown [id number] 2.16.8 [id number] 1955 Unknown [id number] 2.16.84 [id number] 1955 Unknown [id number] 2.16.84 [id number] 1955 Unknown [id number] 2.16.84 [id number] 1955 Unknown [id number] 2.16.84 [id number] Progress note 08-21-2024 Note Date & Type Note Facility 08-21-2024 Note [facility] Cardiology Clinic Note Chief Complaint: New patient here to establish care for CAD. He has hx of PCI in 2013. Former [facility] cardiology patient. No recent testing/labs. He states when he had MD back in 2013 he had a burning in his chest. He's been feeling this a lot more often lately. He doesn't have the neck pain, like he did before. HPI: Vickie King is a 68 y.o. male With a history of coronary artery disease, prior PCI and stent placement of the right coronary artery here to establish care For the past several months he has noticed worsening epigastric burning that can occur at rest and without relation to food or drink. This feels the same as it did prior to his previous PCI and stent placement. The difference as he has no radiation to the neck. And prior to his stent this burning used to occur with exertion. He denies worsening shortness of breath. He has intermittent palpitations. He has no significant lightheadedness, dizziness or syncope. No orthopnea, no paroxysmal: Dyspnea, no lower extremity edema. Social history: He does not drink any caffeinated beverages. He drinks per his description 6-8 alcoholic beverages a week. He denies illicit drugs. Cardiology ROS: Review of Systems Cardiovascular: Positive for chest pain ( burning ). All other systems reviewed and are negative. Past Medical History He has no past medical history on file. Surgical History He has no past surgical history on file. Social History He has no history on file for tobacco use, alcohol use, and drug use. Family History No family history on file. Allergies Patient has no allergy information on record. Medications No current outpatient medications on file. Last Recorded Vitals BP (!) 130/92 (BP Location: Right arm, Patient Position: Sitting) Pulse 66 Ht 1.803 m (5' 11 ) Wt 95.7 kg (211 lb) SpO2 95% BMI 29.43 kg/m??? Physical Examination: GENERAL: alert and oriented x3, well developed, in no acute distress. HEAD: atraumatic, normocephalic. EYES: STEPH, EOMI. NECK: trachea midline, no JVD present, no carotid bruits present. CARDIAC: S1, S2 present. RRR. No murmur, rubs, or gallops. RESPIRATORY: CTAB, no increased effort of breathing, no rales, rhonchi, or wheezing. ABDOMEN: soft, nontender, nondistended. EXTREMITIES: no lower extremity edema, peripheral pulses are 2+ bilaterally. No rash/skin discoloration present. NEURO: strength/sensation equal and symmetric in bilateral upper and lower extremities. PSYCH: appropriate mood, affect, and judgement. INVESTIGATIONS: Stress echocardiogram 12/09/2013: Negative for ischemia at submaximal heart rate. [facility] - Cardiology Procedure VICKIE KING : 1955 AGE: 58 SEX: M ACCTNUM: [id number] HOSP SVC: CVD LOCATION: [facility] ATTENDING PHYSICIAN: Omar Birmingham M.D. DATE OF PROCEDURE: 12/12/2013 PROCEDURE PERFORMED: PTCA/drug eluting stent deployment to right coronary artery. CLINICAL HISTORY: The patient is a 58-year-old gentleman who underwent recent evaluation, including heart catheterization at [facility], after presenting with symptoms in keeping with crescendo/unstable angina. Heart catheterization revealed evidence of a 95% hazy, mid right coronary artery stenosis. The patient was stabilized with medical therapy, including intravenous unfractionated heparin, intravenous nitroglycerin, beta blockers, statins, aspirin and Plavix and transferred to [facility] for catheter based intervention. EQUIPMENT USED: 6-Maltese Amplatz left 0.75 guide catheter, 014 luge guidewire, 3.0 x 15 millimeter Emerge balloon, 3.5 x 20 millimeter PROMUS drug-eluting stent. TECHNIQUE: Under usual sterile conditions, a 6-Maltese sheath was placed in the right radial artery. The 6-Maltese Amplatz left 0.75 guide catheter was advanced to the right coronary ostium , under fluoroscopic guidance, and guide shots obtained. The guide shots confirmed a 95% hazy mid right coronary artery stenosis, with JORDON grade 2 antegrade flow. The patient had already received 600 mg of Plavix, as well as aspirin orally and a weight adjusted Angiomax bolus was given, followed by Angiomax infusion. The 014 luge guidewire was advanced into the right coronary system across the mid vessel stenosis and distally in the vessel without much difficulty. With the guidewire in place, a 3.0 x 15 millimeter Emerge balloon was advanced, positioned across the stenotic site and 3 inflations performed. The balloon was removed and replaced with a 3.5 x 20 millimeter PROMUS drug-eluting stent which was advanced positioned across the mid vessel stenotic site and deployed to a maximum of 3.95 millimeters and 25 seconds duration. The stent deployment balloon was withdrawn into the guide catheter and cineangiography obtained , which revealed a successful PTCA/drug eluting stent deployment to the severe (more content not included)... [facility] Clinical Note 10-27-2021 Note Date & Type Note Facility 10-27-2021 Note OPERATIVE NOTE OPERATION DATE: 10-27-21 ANESTHETIC:Monitored anesthesia care. PREOPERATIVE DIAGNOSIS:Colorectal screening. POSTOPERATIVE DIAGNOSIS:4 mm rectal polyp as well as mild sigmoid diverticulosis. PROCEDURE NAME:Colonoscopy to the cecum with cold forceps polypectomy x1. ESTIMATED BLOOD LOSS: Less than 1 mL. INDICATIONS AND CONSENT: The patient is a 66 year-old male who presents for colorectal screening, indications, risks, benefits, and benefits, of proceeding with colonoscopy were explained extensively to the patient including the risk of bleeding, colon perforation, or anesthetic complications. All of his questions were answered and informed consent was obtained. PROCEDURE: The patient was brought to the OR and placed in the left lateral decubitus position. Monitored anesthesia care was provided. Rectal exam was performed which showed no masses or blood. The scope was inserted into the anal canal, under direct visualization it was advanced, with the aid of abdominal compression it was advanced to the cecum where cecal markings were clearly identified. There was noted to be a good prep. Upon withdrawal of the scope, mucosal surfaces were carefully examined. No mass lesions or inflammatory changes. There was mild sigmoid diverticulosis without inflammatory changes or scarring. Within the rectum there was noted to be a 4 mm sessile polyp that was removed with cold biopsy forceps with good hemostasis. The scope was retroflexed in the anal canal, there was noted to be some prominent rectal veins. No significant hemorrhoidal disease. The scope was then withdrawn. The patient tolerated the procedure well and was sent to the Recovery Room in good condition. Followup colonoscopy should be in 5 years, but may change depending on the pathology results. cc:Sudha Nicolas. [facility] Signed and Approved by: DR VICKIE RITTER . 10/27/2021 10:18:00 [facility] Summary Purpose Family History No Family History Records FoundNo Family History Records FoundNo Family History Records FoundNo Family History Records Found Advance Directives No Advanced Directives Records FoundNo Advanced Directives Records FoundNo Advanced Directives Records FoundNo Advanced Directives Records Found Additional Source Comments (unrecognized sect ion and content) No Status Records FoundNo Status Records FoundNo Status Records FoundNo Status Records Found INFORMATION SOURCE (unrecogn ized section and content) DATE CREATED AUTHOR 04/26/2019 [facility] DATE CREATED AUTHOR AUTHOR'S ORGANIZ ATION 02/01/2022 [facility] DATE CREATED AUTHOR AUTHOR'S ORGANIZ ATION 07/06/2022 [facility] DATE CREATED AUTHOR AUTHOR'S ORGANIZ ATION 08/23/2024 [facility] FOR RECORDS PERTAINING TO PATIENTS WHO ARE OR HAVE BEEN ENROLLED IN A CHEMICAL DEPENDENCY/SUBSTANCEABUSE PROGRAM, SOME INFORMATION MAY BE OMITTED. This clinical summary was aggregated from multiple sources. Caution should be exercised in using it in the provision of clinical care. This summary normalizes information from multiple sources, and as a consequence, information in this document may materially change the coding, format and clinical context of patient data. In addition, data may be omitted in some cases. CLINICAL DECISIONS SHOULD BE BASED ON THE PRIMARY CLINICAL RECORDS. [employer] [facility]. provides no warranty or guarantee of the accuracy or completeness of information in this document.
== END 2024-09-07 01:30 | disposition home or self-care (01) ==
PROVIDERS: Emergency Provider Internal Medicine; PCP Nurse Practitioner Family
DX: N13.2 Hydronephrosis with renal and ureteral calculous obstruction (principal); Z87.442 Personal history of urinary calculi
CPT/HCPCS: 36415; 74176; 80053; 81001; 83605; 85025; 96361; 96365; 96375; 96376; 99285; J1171; J1885; J2250; J2405; J3010; Q0162

== ENCOUNTER 2024-09-24 11:02 | Outpatient (OUT) | payer MEDICARE, OTHER, SELFPAY ==
--- OUTSIDE RECORDS SUMMARY | 2024-09-24 11:21 | XMS_ITS | CCD ---
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] Onset: 4 Viral infection (1 source) COVID-19; Translations: [COVID-19] Onset: 1 Past or Other Problems Problem Classification Problem Date Documented Date Episodic/Chronic Coronary atherosclerosis and other heart disease (1 source) Presence of coronary angioplasty implant and graft; Translations: [PRESENCE COR ANGPLSTY IMPLANT AND GRAFT] Onset: 11-15-2021 Episodic Other aftercare (1 source) 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; 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] Onset: 11-15-2021 Episodic Other [...] Unclassified (1 source) 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; Translations: [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] Onset: 08-21-2024 Results Test Name Value Interpretation Reference Range Facility Office Visiton 08-21-2024 Follow-up visit [id number] Vickie King 1955 M Date Provider Department Center 08/21/2024 271-JOSE YOUNG CARD [facility] Family History Problem Relation Age of Onset Stroke Father Family Status - Relation Status Age at Father Level of Service:26432 LA OFFICE/OUTPATIENT NEW HIGH MDM 60 MINUTES Normal [facility] Orders Onlyon 08-21-2024 Orders Only [id number] Vickie King 1955 M Date Provider Department Center 08/21/2024 HENRIETTA NICHOLE LORY [facility] Family History Problem Relation Age of Onset Stroke Father Family Status - Relation Status Age at Father Normal [facility] Reminderson 11-11-2021 Reminders - From: Kaci Stern LPN To: N - Clinical; Sent: 11/11/2021 08:00:09 EST Show up: 09/27/2031 08:00:00 EST Subject: colonoscopy recall Due Date/Time: 10/27/2031 08:00:00 EST Reminder/Recall Patient is due for screening colonoscopy 10/27/2031. Normal [facility] Ambulatory Clinical Summaryo n 11-10-2021 Ambulatory Clinical Summary {[id number] }[id number] Normal [facility] General Surgery Office/Clini c Noteon 11-10-2021 General [...] Use:., 06/30/2021 Family History Stroke: Father. Normal [facility] Comment on above: Result Comment: Elec tronically Signed By: STONE COLBY, Vickie Valentino\Date and Time Signed: 11/10/21 14:19 EST Pathology Noteon 11-02-2021 Pathology Note [id number]:1 27 Normal [facility] Outside Colonoscopyon 2020 Outside Colonoscopy [id number]: 127 Normal [facility] Lab Reportson 10-27-2021 Lab Reports [id number]:1 27 Normal [facility] Covid-19 PCR ([facility])on 10-07 SARS-CoV-2 (COVID-19) RNA SIERRA+probe Ql (Unsp spec) Not detected Normal NOT DETECTED [facility] Comment on above: Result Comment: This test is not yet approved or cleared by the [place] FDA. When there are no FDA-approved or cleared tests available, and other criteria are met, FDA can make tests available under an emergency access mechanism called an Emergency Use Authorization (EUA). The EUA for this test is supported by the [place] of Health and Human Service's (HHS's) declaration [...] SARS-CoV-2. Performed By: #### C VDTB #### [facility] [address] [place] [address] Dr. Cyndie Delgadillo Lab Reportson 08-03-2021 Lab Reports [id number]: 127 Normal [facility] Covid-19 PCR ([facility])on 07-08 SARS-CoV-2 (COVID-19) RNA SIERRA+probe Ql (Unsp spec) Detected Critically abnormal NOT DETECTED [facility] Comment on above: Result Comment: This test is not yet approved or cleared by the [place] FDA. When there are no FDA-approved or cleared tests available, and other criteria are met, FDA can make tests available under an emergency access mechanism called an Emergency Use Authorization (EUA). The EUA for this test is supported by the [employer] of Health and Human Service's (HHS's) declaration [...] longer be used). Performed By: #### [facility] #### [facility] [address] [place] [address] Dr. Cyndie Delgadillo Consent for Procedure/Surger yon 07-01-2021 Consent for Procedure/Surgery [id number]:1 27 Normal [facility] Ambulatory Clinical Summaryo n 06-30-2021 Ambulatory Clinical Summary {[id number] }CD:[id number] Normal [facility] General Surgery Office/Clini c Noteon 06-30-2021 General [...] available Patient Education Colonoscopy, Adult, Care After, Dfcj-ix-Fqmq Problem List/Past Medical History Ongoing BPH (benign [...] Use:., 06/30/2021 Family History Stroke: Father. Normal [facility] Comment on above: Result Comment: Elec tronically [...] soft and easy to digest. ? Take acyr-yzv-nszhewj or prescription medicines only as told by [...] 11/25/2011 Document Revised: 08/23/2018 Document Reviewed: 07/17/2017 [employer] Patient Education ? 2019 [employer]. 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 Doc#: Unknown CC: Waylon Padilla [facility] Encounters Encounter Date Encounter Type Care Provider Facility Start: 08-21-2024 End: 08-21-2024 ambulatory [facility] Start: 07-06-[address] TANVIR VACA REQUEST Facility:[facility] Start: 11-01-2021 Encounter for preprocedural laboratory examination DR VICKIE RITTER [facility] Start: 10-27-2021 End: 10-27-[address] VICKIE RITTER Facility:[facility] Start: 10-25-2021 End: 10-26-[address] VICKIE RITTER Facility:[facility] Start: 10-25-2021 End: 10-26-2021 Encounter for preprocedural laboratory examination DR VICKIE RITTER Facility:[facility] Start: 07-31-2021 End: 08-01-[address] VICKIE RITTER Facility:[facility] Start: 04-25-2019 End: 04-26-2019 Patient encounter procedure WAYLON PADILLA [facility] Procedures Date Procedure Procedure Detail Performing Clinician Start: 04-25-2019 Echo tthrc r-t 2d w/ wom-mode compl spec&colr d WAYLON PADILLA Start: 04-25-2019 Cv strs tst xers&/or rx cont ecg w/o i&r WAYLON PADILLA Payers Date Payer Category Payer Medicare [id number] 1960 Self-pay [id number] 1960 Unknown [id number] 1955 Unknown [id number] 2.16.8 [id number] 1955 Unknown [id number] 2.16.8 [id number] 1955 Unknown [id number] 2.16.84 [id number] 1955 Unknown [id number] 2.16.84 [id number] 1955 Unknown [id number] 2.16.84 [id number] 1955 Unknown [id number] 2.16.84 [id number] Progress note 08-21-2024 Note Date & Type Note Facility 08-21-2024 Note [facility] Cardiology Clinic Note Chief Complaint: New patient here to establish care for CAD. He has hx of PCI in 2013. Former [facility] cardiology patient. No recent testing/labs. He states when he had OK back in 2013 he had a burning [...] Negative for ischemia at submaximal heart rate. [facility] - Cardiology Procedure VICKIE KING : 1955 AGE: 58 SEX: M ACCTNUM: [id number] HOSP SVC: CVD LOCATION: [facility] ATTENDING PHYSICIAN: Omar Birmingham M.D. DATE OF PROCEDURE: 12/12/2013 PROCEDURE PERFORMED: PTCA/drug eluting stent deployment to right coronary artery. CLINICAL HISTORY: The patient is a 58-year-old gentleman who underwent recent evaluation, including heart catheterization at [facility], after presenting with symptoms in keeping with crescendo/unstable angina. Heart catheterization revealed evidence of a 95% hazy, mid right coronary artery stenosis. The patient was stabilized with medical therapy, including intravenous unfractionated heparin, intravenous nitroglycerin, beta blockers, statins, aspirin and Plavix and transferred to [facility] for catheter based intervention. EQUIPMENT USED: 6-Latvian Amplatz left 0.75 guide catheter, 014 luge guidewire, 3.0 x 15 millimeter Emerge balloon, 3.5 x 20 millimeter PROMUS drug-eluting stent. TECHNIQUE: Under usual sterile conditions, a 6-Latvian sheath was placed in the right radial artery. The 6-Latvian Amplatz left 0.75 guide catheter was advanced [...] to the severe (more content not included)... [facility] Clinical Note 10-27-2021 Note Date & [...] depending on the pathology results. cc:Sudha Nicolas. [facility] Signed and Approved by: DR VICKIE RITTER . 10/27/2021 10:18:00 [facility] Summary Purpose Family History No Family History [...] section and content) DATE CREATED AUTHOR 04/26/2019 Vael [facility] DATE CREATED AUTHOR AUTHOR'S ORGANIZ ATION 02/01/2022 [facility] DATE CREATED AUTHOR AUTHOR'S ORGANIZ ATION 07/06/2022 [facility] DATE CREATED AUTHOR AUTHOR'S ORGANIZ ATION 08/23/2024 [facility] FOR RECORDS PERTAINING TO PATIENTS WHO [...] BE BASED ON THE PRIMARY CLINICAL RECORDS. [employer] [facility]. provides no warranty or guarantee of the accuracy or completeness of information in this document.
[2024-09-24 11:44] LABS: Basophils Percent Auto 0.6 % (0.2-2.0); Eosinophils Absolute Auto 0.6 10^3/uL (0.0-0.7); Eosinophils Percent Auto 9.2 % (0.9-7.0); Hematocrit 43.2 % (42.0-54.0); Hemoglobin 14.6 g/dL (14.0-18.0); Immature Granulocytes Abs Auto 0.01 10^3/uL (0.00-0.03); Immature Granulocytes Pct Auto 0.2 % (0.0-0.5); Lymphocytes Absolute Auto 0.9 10^3/uL (1.2-3.8); Mean Corpuscular HGB Conc 33.8 g/dL (29.9-35.2); Mean Corpuscular Hemoglobin 31.4 pg (25.9-34.0); Mean Corpuscular Volume 92.9 fL (80.0-94.0); Mean Platelet Volume 11.1 fL (9.5-13.5); Monocytes Absolute Auto 0.7 10^3/uL (0.3-0.8); Monocytes Percent Auto 10.7 % (1.7-12.0); Neutrophils Absolute Auto 4.3 10^3/uL (1.4-6.5); Neutrophils Percent Auto 65.3 % (43.0-75.0); Platelet Count 155 10^3/uL (150-450); Red Blood Count 4.65 10^6/uL (4.70-6.10); Red Cell Distribution Width 13.2 % (11.0-15.0); White Blood Count 6.6 10^3/uL (4.0-11.0)
[2024-09-24 12:07] LABS: Anion Gap 15.9; BUN Creatinine Ratio 15.5; Calcium 9.2 mg/dL (8.5-10.1); Carbon Dioxide 23.3 mmol/L (21.0-32.0); Chloride 110 mmol/L (98-107); Estimated GFR (African America >60 (>=60 mL/min/1.73m^2); Estimated GFR (Non-African Ame >60 (>=60 mL/min/1.73m^2); Glucose 98 mg/dL (74-106); Potassium 4.2 mmol/L (3.5-5.1); Sodium 145 mmol/L (136-145)
== END 2024-09-24 11:03 | disposition home or self-care (01) ==
LOC: LAB 11:04
PROVIDERS: PCP Nurse Practitioner Family; Visit Provider Internal Medicine Interventional Cardiology
DX: I25.10 Atherosclerotic heart disease of native coronary artery without angina pectoris (principal); Z95.5 Presence of coronary angioplasty implant and graft
CPT/HCPCS: 36415; 80048; 85025

== ENCOUNTER 2024-10-16 08:40 | Outpatient (OUT) | payer MEDICARE, OTHER, SELFPAY ==
--- OUTSIDE RECORDS SUMMARY | 2024-10-16 08:50 | XMS_ITS | CCD ---
Author Organization [facility] Care Team Providers Care Security Auditor Name Role Phone WAYLON PADILLA Referring Unavailable BRUHL, WAYLON Referring Unavailable NILL, DR JOHNSTON Consulting Unavailable NILL, DR JOHNSTON Admitting Unavailable BOO, SUDHA Primary Care Unavailable NILL, DR JOHNSTON Attending Unavailable CAMILA FAGAN Consulting Unavailable REQUEST, DR RAMEY LISTED Primary Care Unavaila ble BOO, SUDHA Attending Unavailable BOO, SUDHA Admitting Unavailable NILL, DR JOHNSTON Attending Unavailable NILL, DR JOHNSTON Consulting Unavailable REQUEST, DR RAMEY LISTED Primary Care Unavaila ble NILL, DR JOHNSTON Admitting Unavailable NILL, DR JOHNSTON Consulting Unavailable REQUEST, DR RAMEY LISTED Primary Care Unavaila ble NILL, DR JOHNSTON Admitting Unavailable NILL, DR JOHNSTON Attending Unavailable ELTAHAWY, EHAB Referring Unavailable ELTAHAWY, EHAB Attending Unavailable ELTAHAWY, EHAB Attending Unavailable JUAN R, HANI Admitting Unavailable JUAN R, HANI Attending Unavailable ELTAHAWY, EHAB Referring Unavailable ELTAHAWY, EHAB Referring Unavailable ELTAHAWY, EHAB Referring Unavailable Problems Active Problems Problem Classification Problem Date Documented Date Episodic/Chronic Coronary atherosclerosis and other heart disease (6 sources) Old myocardial infarction; Translations: [Atherosclerotic heart disease of [place] coronary artery without angina pectoris] Onset: 2 [...] LUTS] Onset: 2 Chronic Nonspecific chest pain (4 sources) Chest pain, unspecified; Translations: [Other chest pain] Onset: 4 Episodic Unclassified (1 source) PERSONAL HISTORY OF COVID-19; Translations: [PERSONAL HISTORY OF COVID-19] Onset: 2 Unclassified (3 sources) CONTACT W/AND (SUSP) EXPOS COVID-19; Translations: [CONTACT W/AND (SUSP) EXPOS COVID-19] Onset: 1 Unclassified (1 source) 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; Translations: [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] Onset: 4 Viral infection (1 source) COVID-19; Translations: [COVID-19] Onset: 1 Past or Other Problems Problem Classification Problem Date Documented Date Episodic/Chronic Coronary atherosclerosis and other heart disease (1 source) Presence of coronary angioplasty implant and graft; Translations: [PRESENCE COR ANGPLSTY IMPLANT AND GRAFT] Onset: 11-15-2021 Episodic Other aftercare (1 source) terminologist (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; Translations: [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] Onset: 11-15-2021 Episodic [...] Unclassified (1 source) 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; Translations: [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 I am calling you to follow up on your stay with us and make sure all of your questions have been answered. You will be receiving a survey either electronic or via mail and we always aim to receive 9???s and 10???s. If there is any reason you feel as though you cannot give us these scores please indicate that now. 1. How have you been feeling since being discharged from the hospital? Fantastic 2. Did you understand your discharge instructions when they were given to prior to leaving? Yes Were you given an opportunity to ask questions? Yes 3. While a patient in the hospital, was your call light answered in a timely manner? Yes 4. Do have access to all medications that were prescribed to you at discharge? Yes 5. How would you rate your overall stay on a scale of 0-10, 10 being the best experience you have ever had. 10 6. Do you have any further questions you would like to discuss? No Patient Name Vickie King Date 09/29/24 [facility] Telephoneon 09-29-2024 Telephone [id number] Vickie King 1955 M Date Provider Department [place] 09/29/2024 191POP OROPEZA [facility] Family History Problem Relation Age of Onset Stroke Father Family Status - Relation Status Age at Father Reason for Visit and Comments: Hospital Follow-up [832] Normal [facility] 30on 2024 30 The patient is Moderately Stable - Low risk of patient condition declining or worsening The patient's goals for the shift include rest The clinical goals for the shift include VSS Problem: Discharge Planning Goal: Discharge to home or other facility with appropriate resources Outcome: Progressing Flowsheets (Taken 09/25/20241999 by Beatriz Alfaro, RN) Discharge to home or other facility with appropriate resources: Arrange for needed discharge resources and transportation as appropriate Identify barriers to discharge with patient and caregiver Identify discharge learning needs (meds, wound care, etc) Arrange for interpreters to assist at discharge as needed Refer to discharge planning if patient needs post-hospital services based on physician order or complex needs related to functional status, cognitive ability or social support system Problem: Pain - Adult Goal: Verbalizes/displays adequate comfort level or baseline comfort level Outcome: Progressing Flowsheets (Taken 09/25/20241999 by Beatriz Alfaro, RN) Verbalizes/displays adequate comfort level or baseline comfort level: Encourage patient to monitor pain and request assistance Assess pain using appropriate pain scale Administer analgesics based on type and severity of pain and evaluate response Implement non-pharmacological measures as appropriate and evaluate response Consider cultural and social influences on pain and pain management Notify Licensed Independent Practitioner if interventions unsuccessful or patient reports new pain Problem: Safety - Adult Goal: Free from fall injury Outcome: Progressing Flowsheets (Taken 09/25/20241999 by Beatriz Alfaro, RN) Free from fall injury: Assess patient frequently for physical needs Identify cognitive and physical deficits and behaviors that affect risk of falls [place] fall precautions as indicated by assessment Instruct patient to call for assistance with activity based on assessment Modify environment to reduce risk of injury Consider OT/PT consult to assist with strengthening/mobility Educate patient/family on patient safety, including physical limitations Problem: Chronic Conditions and Co-morbidities Goal: Patient's chronic conditions and co-morbidity symptoms are monitored and maintained or improved Outcome: Progressing Flowsheets (Taken 09/25/20241999 by Beatriz Alfaro, RN) Care Plan - Patient's Chronic Conditions and Co-Morbidity Symptoms are Monitored and Maintained or Improved: Monitor and assess patient's chronic conditions and comorbid symptoms for stability, deterioration, or improvement Collaborate with multidisciplinary team to address chronic and comorbid conditions and prevent exacerbation or deterioration Update acute care plan with appropriate goals if chronic or comorbid symptoms are exacerbated and prevent overall improvement and discharge Normal [facility] BASIC METABOLIC PANELon 11-2 Anion gap [Moles/Vol] 11 mmol/L Normal - [facility] Comment on above: Performed By: #### L [id number] ####[facility] ([facility])[address] [place] [address] Calcium [Mass/Vol] 8.6 mg/dL Normal 8.6-10.3 [facility] Comment on above: Performed By: #### L [id number] ####[facility] ([facility])[address] [place] [address] Chloride [Moles/Vol] 109 mmol/L High 98-107 [facility] Comment on above: Performed By: #### L [id number] ####[facility] ([facility])[address] [place] [address] CO2 [Moles/Vol] 24 mmol/L Normal 21-31 [facility] Comment on above: Performed By: #### L [id number] ####[facility] ([facility])[address] [facility] [place] [address] Creatinine [Mass/Vol] 0.84 mg/dL Normal 0.70-1.30 [facility] Comment on above: Performed By: #### L [id number] ####[facility] ([facility])[address] [place] [address] GLOMERULAR FILTRATION RATE ML/MIN/1.73 SQ M.PREDICTED 93.8 mL/min/1.73m*2 Normal >60.0 [facility] Comment on above: Result Comment: The [facility]???s estimated glomerular filtration rate (eGFR) will no longer include consideration of race in its calculation. The National Kidney Foundation???s eGFR Task Force developed new recommendations for the estimation of the glomerular filtration rate in the [place] They recommend immediate implementation of the new equation refit without the race variable in all laboratories because the calculation does not include race. In addition to not including race in the calculation and reporting, it included diversity in its development, and has acceptable performance characteristics and potential consequences that do not disproportionately affect any one group of individuals. Performed By: #### L [id number] ####[facility] [place] [address] Glucose [Mass/Vol] 87 mg/dL Normal 70-100 [facility] Comment on above: Performed By: #### L [id number] ####[facility] ([facility])[address] [place] [address] Potassium [Moles/Vol] 4.1 mmol/L Normal 3.5-5.1 [facility] Comment on above: Performed By: #### L [id number] ####[facility] ([facility])[address] [place] [address] Sodium [Moles/Vol] 140 mmol/L Normal 136-145 [facility] Comment on above: Performed By: #### L [id number] ####[facility] ([facility])[address] [place] [address] Urea nitrogen [Mass/Vol] 13 mg/dL Normal 7-25 [facility] Comment on above: Performed By: #### L [id number] ####[facility] ([facility]ER)[address] [place] [address] UREA NITROGEN/CREATINI NE (MASS RATIO) IN SER/PLAS 15.5 Normal [facility] Comment on above: Performed By: #### L [id number] ####[facility] (BE[facility]ER)[address] [place] [address] CBCon 2024 Erythrocyte distribution width (RBC) [Ratio] 13.2 % Normal 11.5-15.0 [facility] Comment on above: Performed By: #### L [id number] ####[facility] ([facility] [place] [address] ERYTHROCYTE MEAN CORPUSCULAR HEMOGLOBIN CONCENTRATION (G/DL) BY AUTOMATED 33.2 g/dL Normal 32.0-35.0 [facility] Comment on above: Performed By: #### L [id number] ####[facility] (BE[facility]ER)[address] [place] [address] Hematocrit (Bld) [Volume fraction] 43.7 % Normal 39.0-55.0 [facility] Comment on above: Performed By: #### L [id number] ####[facility] (BE[facility]ER)[address] [place] [address] Hemoglobin (Bld) [Mass/Vol] 14.5 g/dL Normal 13.0-17.0 [facility] Comment on above: Performed By: #### L [id number] ####[facility] ([facility])[address] [place] [address] MCH (RBC) [Entitic mass] 31.1 pg Normal 27.0-33.0 [facility] Comment on above: Performed By: #### L [id number] ####[facility] ([facility])[address] [place] [address] MCV (RBC) [Entitic vol] 93.8 fL Normal 82.0-98.0 [facility] Comment on above: Performed By: #### L [id number] ####[facility] ([facility])[address] [place] [address] PLATELETS (10*3/UL) IN BLOOD AUTOMATED COUNT 154 10*3/uL Normal 150-400 [facility] Comment on above: Performed By: #### L [id number] ####[facility] ([facility])[address] [place] [address] RBC (Bld) [#/Vol] 4.66 10*6/uL Normal 4.20-5.70 [facility] Comment on above: Performed By: #### L [id number] ####[facility] ([facility])[address] [place] [address] WBC (Bld) [#/Vol] 8.77 10*3/uL Normal 4.00-10.60 [facility] Comment on above: Performed By: #### L [id number] ####[facility] ([facility])[address] [place] [address] NURSNOTEon 2024 NURSNOTE Discharge instructio ns given and reviewed with patient. Questions answered, signed, copy received. Normal [facility] TROPONIN Ion 2024 Troponin I.cardiac [Mass/Vol] 0.75 ng/mL Critically high 0.00-0.04 [facility] Comment on above: Result Comment: M-TR OPONIN INITIAL CRITICAL HIGH; RESPUN AND RETESTED Performed By: #### L [id number] #### [facility] ([facility]) [address] [place] [address] 30on 09-25-2024 30 The patient is Moderately Stable - Low risk of patient condition declining or worsening The patient's goals for the shift include rest The clinical goals for the shift include stable vs Problem: Discharge Planning Goal: Discharge to home or other facility with appropriate resources Outcome: Progressing Flowsheets (Taken 09/25/20241999) Discharge to home or other facility with appropriate resources: Arrange for needed discharge resources and transportation as appropriate Identify barriers to discharge with patient and caregiver Identify discharge learning needs (meds, wound care, etc) Arrange for interpreters to assist at discharge as needed Refer to discharge planning if patient needs post-hospital services based on physician order or complex needs related to functional status, cognitive ability or social support system Problem: Pain - Adult Goal: Verbalizes/displays adequate comfort level or baseline comfort level Outcome: Progressing Flowsheets (Taken 09/25/20241999) Verbalizes/displays adequate comfort level or baseline comfort level: Encourage patient to monitor pain and request assistance Assess pain using appropriate pain scale Administer analgesics based on type and severity of pain and evaluate response Implement non-pharmacological measures as appropriate and evaluate response Consider cultural and social influences on pain and pain management Notify Licensed Independent Practitioner if interventions unsuccessful or patient reports new pain Problem: Safety - Adult Goal: Free from fall injury Outcome: Progressing Flowsheets (Taken 09/25/20241999) Free from fall injury: Assess patient frequently for physical needs Identify cognitive and physical deficits and behaviors that affect risk of falls [place] fall precautions as indicated by assessment Instruct patient to call for assistance with activity based on assessment Modify environment to reduce risk of injury Consider OT/PT consult to assist with strengthening/mobility Educate patient/family on patient safety, including physical limitations Problem: Chronic Conditions and Co-morbidities Goal: Patient's chronic conditions and co-morbidity symptoms are monitored and maintained or improved Outcome: Progressing Flowsheets (Taken 09/25/20241999) Care Plan - Patient's Chronic Conditions and Co-Morbidity Symptoms are Monitored and Maintained or Improved: Monitor and assess patient's chronic conditions and comorbid symptoms for stability, deterioration, or improvement Collaborate with multidisciplinary team to address chronic and comorbid conditions and prevent exacerbation or deterioration Update acute care plan with appropriate goals if chronic or comorbid symptoms are exacerbated and prevent overall improvement and discharge Normal [facility] 30 The patient is Moderately Stable - Low risk of patient condition declining or worsening The patient's goals for the shift include vss The clinical goals for the shift include monitor vitals, safety Over the shift, the patient did not make progress toward the following goals. Barriers to progression include . Recommendations to address these barriers include Problem: Discharge Planning Goal: Discharge to home or other facility with appropriate resources Outcome: Progressing Flowsheets (Taken 09/25/2024 1145) Discharge to home or other facility with appropriate resources: Identify barriers to discharge with patient and caregiver Arrange for needed discharge resources and transportation as appropriate Problem: Pain - Adult Goal: Verbalizes/displays adequate comfort level or baseline comfort level Outcome: Progressing Flowsheets Taken 09/25/2024 1145 Verbalizes/displays adequate comfort level or baseline comfort level: Encourage patient to monitor pain and request assistance Assess pain using appropriate pain scale Taken 09/25/2024 0745 Verbalizes/displays adequate comfort level or baseline comfort level: Encourage patient to monitor pain and request assistance Assess pain using appropriate pain scale Problem: Safety - Adult Goal: Free from fall injury Outcome: Progressing Flowsheets (Taken 09/25/2024 1145) Free from fall injury: Assess patient frequently for physical needs Instruct patient to call for assistance with activity based on assessment Problem: Chronic Conditions and Co-morbidities Goal: Patient's chronic conditions and co-morbidity symptoms are monitored and maintained or improved Outcome: Progressing Flowsheets (Taken 09/25/2024 1145) Care Plan - Patient's Chronic Conditions and Co-Morbidity Symptoms are Monitored and Maintained or Improved: Monitor and assess patient's chronic conditions and comorbid symptoms for stability, deterioration, or improvement Collaborate with multidisciplinary team to address chronic and comorbid conditions and prevent exacerbation or deterioration . Normal [facility] Bianca 09-25-2024 RONNAS ---- -------- Attestation signed by Karla Castaneda MD at 09/25/2024 8:38 AM By using the attestations below, the signing clinician agrees that I have read and verify that the documentation has been personally reviewed by me and ensure that the documentation accurately reflects the encounter. GC: I personally saw this patient on the day of the encounter, performed the over[place] portion(s) of the service and participated in the management and confirm the resident's documentation. Please note there may be an additional personal documentation from me. Additional Comments: Karla Castaneda MD, MPH, [facility], [facility], [facility] Interventional Cardiology Pager Email: [email or web address] Patient: Vickie King Procedure Information Date/Time: 09/25/24829 Procedure: Coronary angiography - ins per pt Location: [facility] DIRECT CARE SUPERVISOR [address] / [facility] (Cath) Providers: Karla Castaneda MD Clinical information reviewed: Tobacco Allergies Meds Med Hx Surg Hx Fam Hx Physical Exam Airway Mallampati: III TM distance: >3 FB Cardiovascular (-) murmur Dental Pulmonary Abdominal Anesthesia Plan other (Conscious sedation. ) Additional Equipment Requests Normal [facility] BASIC METABOLIC PANELon 11-2 Anion gap [Moles/Vol] 9 mmol/L Normal 7- [facility] Comment on above: Performed By: #### L [id number] #### [facility] ([facility]) [address] [place] [address] Calcium [Mass/Vol] 8.2 mg/dL Low 8.6-10.3 [facility] Comment on above: Performed By: #### L [id number] #### [facility] (BEAKER) [address] [place] [address] Chloride [Moles/Vol] 110 mmol/L High 98-107 [facility] Comment on above: Performed By: #### L [id number] #### [facility] ([facility] [address] [place] [address] CO2 [Moles/Vol] 23 mmol/L Normal 21-31 [facility] Comment on above: Performed By: #### L [id number] #### [facility] ([facility]) [address] [place] [address] Creatinine [Mass/Vol] 0.79 mg/dL Normal 0.70-1.30 [facility] Comment on above: Performed By: #### L [id number] #### [facility] ([facility]) [address] [place] [address] GLOMERULAR FILTRATION RATE ML/MIN/1.73 SQ M.PREDICTED 96.2 mL/min/1.73m*2 Normal >60.0 [facility] Comment on above: Result Comment: The [facility]???s estimated glomerular filtration rate (eGFR) will no longer include consideration of race in its calculation. The National Kidney Foundation???s eGFR Task Force developed new recommendations for the estimation of the glomerular filtration rate in the [place] They recommend immediate implementation of the new equation refit without the race variable in all laboratories because the calculation does not include race. In addition to not including race in the calculation and reporting, it included diversity in its development, and has acceptable performance characteristics and potential consequences that do not disproportionately affect any one group of individuals. Performed By: #### L [id number] #### [facility] ([facility]) [address] [place] [address] Glucose [Mass/Vol] 116 mg/dL High 70-100 [facility] Comment on above: Performed By: #### L [id number] #### [facility] ([facility]) [address] [place] [address] Potassium [Moles/Vol] 4.1 mmol/L Normal 3.5-5.1 [facility] Comment on above: Performed By: #### L [id number] #### [facility] ([facility]) [address] [place] [address] Sodium [Moles/Vol] 138 mmol/L Normal 136-145 [facility] Comment on above: Performed By: #### L [id number] #### [facility] ([facility] [address] [place] [address] Urea nitrogen [Mass/Vol] 13 mg/dL Normal 7-25 [facility] Comment on above: Performed By: #### L [id number] #### [facility] ([facility] [address] [address] UREA NITROGEN/CREATINI NE (MASS RATIO) IN SER/PLAS 16.5 Normal [facility] Comment on above: Performed By: #### L [id number] #### [facility] ([facility]) [address] [address] CBCon 09-25-2024 Erythrocyte distribution width (RBC) [Ratio] 13.3 % Normal 11.5-15.0 [facility] Comment on above: Performed By: #### L [id number] #### [facility] ([facility]) [address] [address] ERYTHROCYTE MEAN CORPUSCULAR HEMOGLOBIN CONCENTRATION (G/DL) BY AUTOMATED 32.8 g/dL Normal 32.0-35.0 [facility] Comment on above: Performed By: #### L [id number] #### [facility] ([facility]) [address] [address] Hematocrit (Bld) [Volume fraction] 42.7 % Normal 39.0-55.0 [facility] Comment on above: Performed By: #### L [id number] #### [facility] ([facility] [address] [place] [address] Hemoglobin (Bld) [Mass/Vol] 14.0 g/dL Normal 13.0-17.0 [facility] Comment on above: Performed By: #### L [id number] #### [facility] ([facility]) [address] [place] [address] MCH (RBC) [Entitic mass] 31.0 pg Normal 27.0-33.0 [facility] Comment on above: Performed By: #### L [id number] #### [facility] ([facility]) [address] [place] [address] MCV (RBC) [Entitic vol] 94.5 fL Normal 82.0-98.0 [facility] Comment on above: Performed By: #### L [id number] #### [facility] ([facility]) [address] [place] [address] PLATELETS (10*3/UL) IN BLOOD AUTOMATED COUNT 149 10*3/uL Low 150-400 [facility] Comment on above: Performed By: #### L [id number] #### [facility] ([facility]) [address] [place] [address] RBC (Bld) [#/Vol] 4.52 10*6/uL Normal 4.20-5.70 [facility] Comment on above: Performed By: #### L [id number] #### [facility] ([facility]) [address] [place] [address] WBC (Bld) [#/Vol] 9.72 10*3/uL Normal 4.00-10.60 [facility] Comment on above: Performed By: #### L [id number] #### [facility] ([facility]) [address] [place] [address] HEMOGLOBIN A1Con 09-25-2024 Glucose [Mass/Vol] 123 mg/dL Normal [facility] Comment on above: Performed By: #### L [id number] #### [facility] ([facility]) [address] [place] [address] HbA1c (Bld) [Mass fraction] 5.9 % Normal 4.0-6.0 [facility] Comment on above: Performed By: #### L [id number] #### [facility] ([facility]) [address] [place] [address] HPon 09-25-2024 HP ---- -------- Attestation signed by Karla Castaneda MD at 09/25/2024 8:38 AM By using the attestations below, the signing clinician agrees that I have read and verify that the documentation has been personally reviewed by me and ensure that the documentation accurately reflects the encounter. GC: I personally saw this patient on the day of the encounter, performed the overton portion(s) of the service and participated in the management and confirm the resident's documentation. Please note there may be an additional personal documentation from me. Additional Comments: Karla Castaneda MD, MPH, [facility], [facility], [facility] Interventional Cardiology Pager Email: [email or web address] -------- History Of Present Illness Vickie King is a 68 y.o. male presenting For coronary angiogram. He has hx of PCI in 2013 in [facility]. Former [facility] cardiology patient. For the past several months he has noticed worsening epigastric burning that can occur at rest and without relation to food or drink. This feels the same as it did prior to his previous PCI and stent placement. The difference as he has no radiation to the neck. And prior to his stent this burning used to occur with exertion. Past Medical History He has a past medical history of Abnormal ECG, Coronary artery disease, Hyperlipidemia, Hypertension, and Myocardial infarction ([facility]). Surgical History He has a past surgical history that includes Cardiac catheterization and Coronary stent placement. Social History He reports that he has quit smoking. His smoking use included cigarettes. He has never used smokeless tobacco. He reports current alcohol use. No history on file for drug use. Allergies Patient has no known allergies. Medications Medications Prior to Admission Medication Sig Dispense Refill Last Dose aspirin 81 mg chewable tablet Chew 81 mg in the morning. 09/25/2024 atorvastatin (Lipitor) 80 mg tablet Take 1 tablet by mouth in the morning. 09/25/2024 bisoproloL-hydroCHLOROth iazide (Ziac) 2.5-6.25 mg tablet Take 1 tablet by mouth in the morning. 09/25/2024 nitroglycerin (Nitrostat) 0.[address] 0.4 mg under the tongue every 5 (five) minutes if needed for chest pain. Unknown Review of Systems Cardiovascular: Positive for chest pain ( burning ). All other systems reviewed and are negative. Physical Exam GENERAL: alert and oriented x3, well developed, [...] extremities. PSYCH: appropriate mood, affect, and judgement. Last Recorded Vitals Blood pressure 134/76, pulse (!) 42, resp. rate 15, height 1.803 m (5' 11 ), weight 99.8 kg (220 lb), SpO2 94%. Relevant Results Stress echocardiogram 12/09/2013: Negative for ischemia at submaximal heart rate. [facility] - Cardiology Procedure VICKIE KING : 1955 AGE: 58 SEX: M ACCTNUM: [id number] HOSP SVC: CVD LOCATION: [id number] ATTENDING PHYSICIAN: Omar Birmingham M.D. DATE OF PROCEDURE: 12/12/2013 PROCEDURE PERFORMED: PTCA/drug eluting stent deployment to right coronary artery. CLINICAL HISTORY: The patient is a 58-year-old gentleman who underwent recent evaluation, including heart catheterization at [facility], after presenting with symptoms in keeping with crescendo/unstable angina. Heart catheterization revealed evidence of a 95% hazy, mid right coronary artery stenosis. The patient was stabilized with medical therapy, including intravenous unfractionated heparin, intravenous nitroglycerin, beta blockers, statins, aspirin and Plavix and transferred to [facility] for catheter based intervention. EQUIPMENT USED: 6-Colombian Amplatz left 0.75 guide catheter, 014 luge guidewire, 3.0 x 15 millimeter Emerge balloon, 3.5 x 20 millimeter PROMUS drug-eluting stent. TECHNIQUE: Under usual sterile conditions, a 6-Colombian sheath was placed in the right radial artery. The 6-Colombian Amplatz left 0.75 guide catheter was advanced to the right coronary ostium , under fluoroscopic guidance, and guide shots obtained. The guide shots confirmed a 95% hazy mid right coronary artery stenosis, with JORDON grade 2 antegrade flow. The patient had already received 600 mg of Plavix, as well as aspirin orally and a weight adjusted Angiomax bolus was given, followed by Angiom (more content not included)... [facility] Cardiology Clinic Note Chief Complaint: New patient here to establish care for CAD. He has hx of PCI in 2013. Former [facility] cardiology patient. No recent testing/labs. He states when he had CO back in 2013 he had a burning [...] alcohol use, and drug use. Family History Family History No family history on file. Allergies Patient has no allergy information on record. Medications Current Medications No current outpatient medications on file. [...] Negative for ischemia at submaximal heart rate. [facility] - Cardiology Procedure VICKIE KING : 1955 AGE: 58 SEX: M ACCTNUM: [id number] [facility] SVC: CVD LOCATION: [id number] ATTENDING PHYSICIAN: Omar Birmingham M.D. DATE OF PROCEDURE: 12/12/2013 PROCEDURE PERFORMED: PTCA/drug eluting stent deployment to right coronary artery. CLINICAL HISTORY: The patient is a 58-year-old gentleman who underwent recent evaluation, including heart catheterization at [facility], after presenting with symptoms in keeping with crescendo/unstable angina. Heart catheterization revealed evidence of a 95% hazy, mid right coronary artery stenosis. The patient was stabilized with medical therapy, including intravenous unfractionated heparin, intravenous nitroglycerin, beta blockers, statins, aspirin and Plavix and transferred to [facility] for catheter based intervention. EQUIPMENT USED: 6-Colombian Amplatz left 0.75 guide catheter, 014 luge guidewire, 3.0 x 15 millimeter Emerge balloon, 3.5 x 20 millimeter PROMUS drug-eluting stent. TECHNIQUE: Under usual sterile conditions, a 6-Colombian sheath was placed in the right radial artery. The 6-Colombian Amplatz left 0.75 guide catheter was advanced [...] obtained , which revealed a successful PTCA/drug (more content not included)... Normal [facility] LIPID PANELon 09-25-2024 CHOL/HDL 3.4 mg/dL Normal [facility] Comment on above: Performed By: #### L [id number] ####[facility] ([facility]ER)[address] [place] [address] Cholesterol [Mass/Vol] 136 mg/dL Normal 120-200 [facility] Comment on above: Performed By: #### L [id number] ####[facility] ([facility])[address] [place] [address] Magnesium [Mass/Vol] 41 mg/dL Normal 40-149 [facility] Comment on above: Result Comment: TRIG LYCERIDE REFERENCE RANGE: 20 YEARS AND OLDER CARDIOVASCULAR RISK LESS THAN 150 mg/dL LOW RISK 150 TO 199 mg/dL BORDERLINE RISK 200 mg/dL AND GREATER HIGH RISK Performed By: #### L [id number] ####[facility] ([facility])[address] [place] [address] Magnesium [Mass/Vol] 88 mg/dL Normal 0-160 [facility] Comment on above: Performed By: #### L [id number] ####[facility] ([facility])[address] [place] [address] Magnesium [Mass/Vol] 40 mg/dL Normal 23-92 [facility] Comment on above: Performed By: #### L [id number] ####[facility] ([facility])[address] [place] [address] NON HDL CHOL. (LDL+VLDL) 96 Normal [facility] Comment on above: Performed By: #### L [id number] ####[facility] ([facility])[address] [place] [address] TOTAL VLDL-C 8 mg/dL Normal 0-40 [facility] Comment on above: Performed By: #### L [id number] ####[facility] ([facility])[address] [place] [address] NURSNOTEon 09-25-2024 NURSNOTE Report given to Nathaly reid RN from Shannan SYKES Any medications or safety alerts were reviewed. Any pending diagnostics and notifications were also reviewed, as well as any safety concerns or issues, abnormal labs, abnormal imagining, and abnormal assessment findings. Questions were answered. Normal [facility] TSH3 REFLEX TO FT4on 024 THYROTROPIN (MIU/L) IN SER/PLAS BY DETECTION LIMIT <= 0.05 MIU/L 1.41 mIU/L Normal 0.34-5.60 [facility] Comment on above: Performed By: #### L [id number] #### [facility] ([facility]) [address] [place] [address] Orders Onlyon 09-23-2024 Orders Only [id number] Vickie King 1955 M Date Provider Department Center 09/23/2024 GABRIEL LEONARD [facility] Family History Problem Relation Age of Onset Stroke Father Family Status - Relation Status Age at Father Normal [facility] Office Visiton 08-21-2024 Follow-up visit [id number] Vickie King 1955 [facility] Provider Department Center 08/21/2024 Shaina-KARLA CASTANEDA [facility] Family History Problem Relation Age of Onset Stroke Father Family Status - Relation Status Age at Father Level of Service:48631 [facility] OFFICE/OUTPATIENT [facility] 60 MINUTES Normal [facility] Orders Onlyon 08-21-2024 Orders Only [id number] Vickie King 1955 [facility] Provider Department Center 08/21/2024 Lashanda-HENRIETTA HADLEY [facility] Family History Problem Relation Age of Onset Stroke Father Family Status - Relation Status Age at Father Normal [facility] Reminderson 11-11-2021 Reminders - From: Kaci Stern LPN To: N - Clinical; Sent: 11/11/2021 08:00:09 EST Show up: 09/27/2031 08:00:00 EST Subject: colonoscopy recall Due Date/Time: 10/27/2031 08:00:00 EST Reminder/Recall Patient is due for screening colonoscopy 10/27/2031. Normal [facility] Ambulatory Clinical Summaryo n 11-10-2021 Ambulatory Clinical Summary {[id number] }CD:[id number] Normal [facility] General Surgery Office/Clini c Noteon 11-10-2021 [...] Use:., 06/30/2021 Family History Stroke: Father. Normal [facility] Comment on above: Result Comment: Elec tronically Signed By: STONE COLBY, Vickie Valentino\Date and Time Signed: 11/10/21 14:19 EST Pathology Noteon 11-02-2021 Pathology Note [id number]:1 27 Normal [facility] Outside Colonoscopyon 2020 Outside Colonoscopy [id number]: 127 Normal [facility] Lab Reportson 10-27-2021 Lab Reports [id number]:1 27 [facility] Covid-19 PCR ([facility]on 10-07 SARS-CoV-2 (COVID-19) RNA SIERRA+probe Ql (Unsp spec) Not detected Normal NOT DETECTED [facility] Comment on above: Result Comment: This test is not yet approved or cleared by the [place] FDA. When there are no FDA-approved or cleared tests available, and other criteria are met, FDA can make tests available under an emergency access mechanism called an Emergency Use Authorization (EUA). The EUA for this test is supported by the [employer] of Health and Human Service's (HHS's) declaration [...] SARS-CoV-2. Performed By: #### C VDTB #### [facility] [address] [place], [place] [address] Dr. Cyndie Delgadillo Lab Reportson 08-03-2021 Lab Reports [id number]: 127 Normal [facility] Covid-19 PCR ([facility])on 07-08 SARS-CoV-2 (COVID-19) RNA SIERRA+probe Ql (Unsp spec) Detected Critically abnormal NOT DETECTED [facility] Comment on above: Result Comment: This test is not yet approved or cleared by the [place] FDA. When there are no FDA-approved or cleared tests available, and other criteria are met, FDA can make tests available under an emergency access mechanism called an Emergency Use Authorization (EUA). The EUA for this test is supported by the [place] of Health and Human Service's (HHS's) declaration [...] longer be used). Performed By: #### [facility] #### [facility] [address] [place], [place] [address] Dr. Cyndie Delgadillo Consent for Procedure/Surger yon 07-01-2021 Consent for Procedure/Surgery [id number]:1 27 Normal [facility] Ambulatory Clinical Summaryo n 06-30-2021 Ambulatory Clinical Summary {[id number] }CD:[id number] Normal [facility] General Surgery Office/Clini c Noteon 06-30-2021 [...] available Patient Education Colonoscopy, Adult, Care After, Foef-sa-Jugj Problem List/Past Medical History Ongoing BPH (benign [...] Use:., 06/30/2021 Family History Stroke: Father. Normal [facility] Comment on above: Result Comment: Elec tronically Signed By: STONE COLBY, Vickie Michael.darron\Date and Time Signed: 06/30/21 16:38 EDT Patient [...] soft and easy to digest. ? Take poiu-fvg-ldhfuoz or prescription medicines only as told by [...] 11/25/2011 Document Revised: 08/23/2018 Document Reviewed: 07/17/2017 Elsevier Patient Education ? 2019 [employer]. [facility] Physician Referralon 021 Physician Referral [id number]: 127 [facility] CARDIAC STRESS TESTon 2018 CARDIAC STRESS TEST [place] [id number] CARDIAC STRESS TEST PATIENT NAME: KRYSTLE KING : 1955 MED REC NO: [id number] ROOM: ACCOUNT NO: [id number] ADMIT DATE: 04/25/2019 PROVIDER: Lakisha Mitchell CARDIOVASCULAR [...] being on a beta branden. LAKISHA MITCHELL SOLA Job#: [id number] Doc#: Unknown CC: Waylon Padilla [facility] Encounters Encounter Date Encounter Type Care Provider Facility Start: 10-07-2024 End: 10-07-2024 ambulatory [facility] Start: 09-25-2024 Evaluation and manag ement of inpatient [facility] Start: 09-25-2024 ambulatory [facility] Start: 09-25-2024 ambulatory [facility] Start: 09-25-2024 End: 2024 Evaluation and management of inpatient [facility]ED[facility] FLOOD [facility] Start: 08-21-2024 End: 08-21-2024 ambulatory [facility] Start: 07-06-[address] NONE LISTED REQUEST Facility: Start: 11-01-2021 Encounter for preprocedural laboratory examination DR VICKIE RITTER [facility] Start: 10-27-2021 End: 10-27-[address] VICKIE RITTER Facility:[facility] Start: 10-25-2021 End: 10-26-[address] VICKIE RITTER Facility:[facility] Start: 10-25-2021 End: 10-26-2021 Encounter for preprocedural laboratory examination DR VICKIE RITTER Facility:[facility] Start: 07-31-2021 End: 08-01-[address] VICKIE RITTER Facility:[facility] Start: 04-25-2019 End: 04-26-2019 Patient encounter procedure WAYLON PADILLA [facility] Procedures Date Procedure Procedure Detail Performing Clinician Start: 04-25-2019 Echo tthrc r-t 2d w/ wom-mode compl spec&colr d WAYLON PADILLA Start: 04-25-2019 Cv strs tst xers&/or rx cont ecg w/o i&r WAYLON PADILLA Payers Date Payer Category Payer Unknown [id number] 1960 Medicare [id number] 1960 Self-pay [id number] 1960 Unknown [id number] 1955 Unknown [id number] 2.16.8 [id number] 1955 Unknown [id number] 2.16.8 [id number] 1955 Unknown [id number] 2.16.84 [id number] 1955 Unknown [id number] 2.16.84 [id number] 1955 Unknown [id number] 2.16.84 [id number] 1955 Unknown [id number] 2.16.84 [id number] Progress note 10-07-2024 Note Date & Type Note Facility 10-07-2024 Note [facility] Cardiology Clinic Note Chief Complaint: Patient here for follow up PCI performed 09/25/2024. He wants to know if nitroglycerin is something he should be carrying with him. The burning in his chest has resolved. He denies SOB and palpitations. HPI: Vickie King is a 69 y.o. male With a history of coronary [...] illicit drugs. Cardiology ROS: Review of Systems Musculoskeletal: Positive for arthritis, back pain and myalgias. All other systems reviewed and are negative. Past Medical History He has a past medical history of Abnormal ECG, Coronary artery disease, Hyperlipidemia, Hypertension, and Myocardial infarction ([facility]). Surgical History He has a past surgical history that includes Cardiac catheterization and Coronary stent placement. Social History He reports that he has quit smoking. His smoking use included cigarettes. He has never used smokeless tobacco. He reports current alcohol use. No history on file for drug use. Family History Family History Problem Relation Name Age of Onset Stroke Father Allergies Patient has no known allergies. Medications Current Outpatient Medications: aspirin 81 mg chewable tablet, Chew 81 mg in the morning., Disp: , Rfl: atorvastatin (Lipitor) 80 mg tablet, Take 1 tablet by mouth in the morning., Disp: , Rfl: bisoproloL-hydroCHLOROthiazide (Ziac) 2.5-6.25 mg tablet, Take 1 tablet by mouth in the morning., Disp: , Rfl: clopidogrel (Plavix) 75 mg tablet, Take 1 tablet (75 mg) by mouth in the morning for 30 doses., Disp: 30 tablet, Rfl: 0 nitroglycerin (Nitrostat) 0.4 mg SL tablet, Place 0.4 mg under the tongue every 5 (five) minutes if needed for chest pain., Disp: , Rfl: Last Recorded Vitals BP 134/88 (BP Location: Left arm, Patient Position: Sitting) Pulse 59 Ht 1.803 m (5' 11 ) Wt 98 kg (216 lb) SpO2 94% BMI 30.13 kg/m??? Physical Examination: GENERAL: alert and oriented [...] Negative for ischemia at submaximal heart rate. [facility] - Cardiology Procedure VICKIE KING : 1955 AGE: 58 SEX: M ACCTNUM: [id number] [facility] SVC: CVD LOCATION: [id number] ATTENDING PHYSICIAN: Omar Birmingham M.D. DATE OF PROCEDURE: 12/12/2013 PROCEDURE PERFORMED: PTCA/drug eluting stent deployment to right coronary artery. CLINICAL HISTORY: The patient is a 58-year-old gentleman who underwent recent evaluation, including heart catheterization at [facility], after presenting with symptoms in keeping with crescendo/unstable angina. Heart catheterization revealed evidence of a 95% hazy, mid right coronary artery stenosis. The patient was stabilized with medical therapy, including intravenous unfractionated heparin, intravenous nitroglycerin, beta blockers, statins, aspirin and Plavix and transferred to [facility] for catheter based intervention. EQUIPMENT USED: 6-Colombian Amplatz left 0.75 guide catheter, 014 luge guidewire, 3.0 x 15 millimeter Emerge balloon, 3.5 x 20 millimeter PROMUS drug-eluting stent. TECHNIQUE: Under usual sterile conditions, a 6-Colombian sheath was placed in the right radial artery. The 6-Colombian Amplatz left 0.75 guide catheter was advanced to the right coronary ostium , under fluoroscopic guidance, and guide shots obtained. The guide shots confirmed a 95% hazy mid right coronary artery stenosis, with JORDON grade 2 antegrade flow. The patient had already received 600 mg of Plavix, as well as aspirin orally and a weight adjusted Angiomax bolus was given, follo (more content not included)... [facility] Clinical Note 2024 Note Date & Type Note Facility 2024 Note Hospital Medicine Discharge Summary Final Discharge Diagnosis: NSTEMI Transient iatrogenic coronary air embolism resolved with repeat aspiration and 100% oxygen. Admission Diagnosis: Chest pain, unspecified type [R07.9] Unstable angina (CMS/HCC) [I20.0] Hospital course: Vickie King is a 68 y.o. male presenting For coronary angiogram. He has hx of PCI in 2013 in [facility]. For the past several months he has noticed worsening epigastric burning that can occur at rest and without relation to food or drink. This feels the same as it did prior to his previous PCI and stent placement. EKG was done and showed sinus with PVCs and trops of 0.75 Cardiology evaluated the patient and he had cardiac cath on 09/25/2024: Severe, heavily calcific stenosis of the right coronary artery successfully treated by balloon angioplasty, Shockwave intravascular lithotripsy (IVL), and Synergy drug-eluting stent placement Coronary slow flow treated with intracoronary adenosine and systemic IV Dopamine Transient, iatrogenic coronary air embolism resolved with repeat aspiration and 100% oxygen by nonrebreather Moderate in-stent restenosis of the left circumflex and obtuse marginal branch Mild disease of the left anterior descending coronary artery Echocardiogram also was done and showed EF of 55% Plavix added to his regimen and patient being discharged today and to follow-up with cardiology in 1 week if possible. beta-blockers was avoided due to sinus bradycardia Surgical, Invasive or Diagnostic Procedures Done During Admission: Cardiac Cath Consultations During Admission: Cardiology Dear Dr. Nicolas, MEGAN, Vickie is advised to follow up with you within 1-2 weeks. Items to follow up in ambulatory setting: None Follow-up with: Cardiology Scheduled appointments: Future Appointments Date Time Provider Department Center 10/07/2024 9:00 AM Karla Castaneda MD [facility] Your medication list START taking these medications Instructions Last Dose Given Next Dose Due clopidogrel 75 mg tablet Commonly known as: Plavix Take 1 tablet (75 mg) by mouth in the morning for 30 doses. CONTINUE taking these medications Instructions Last Dose Given Next Dose Due aspirin 81 mg chewable tablet atorvastatin 80 mg tablet Commonly known as: Lipitor bisoproloL-hydroCHLOROthiazide 2.5-6.25 mg tablet Commonly known as: Ziac nitroglycerin 0.4 mg SL tablet Commonly known as: Nitrostat Where to Get Your Medications These medications were sent to [facility] [id number] [address] [place] [id number] clopidogrel 75 mg tablet Vickie has No Known Allergies. Disposition: Home or Self Care () Discharge Condition: Stable Code Status: Full Code Diagnostic Results Hematology: Results from last 7 days Lab Units 09/26/24 0553 09/25/24 1212 WBC AUTO 10*3/uL 8.77 9.72 HEMOGLOBIN g/dL 14.5 14.0 HEMATOCRIT % 43.7 42.7 MCV fL 93.8 94.5 PLATELETS AUTO 10*3/uL 154 149* Chemistry: Results from last 7 days Lab Units 09/26/24 0553 09/25/24 1212 SODIUM mmol/L 140 138 POTASSIUM mmol/L 4.1 4.1 CHLORIDE mmol/L 109* 110* CO2 mmol/L 24 23 BUN mg/dL 13 13 CREATININE mg/dL 0.84 0.79 GLUCOSE mg/dL 87 116* CALCIUM mg/dL 8.6 8.2* No lab exists for component: AFIO2 , APHT , APCOT , APOT , ATCO2 , CK , ALB , IBILI Test Results Pending At Discharge: Diet at the time of discharge: regular diet and cardiac diet Activity: Normal activity as tolerated Objective Blood pressure 129/79, pulse 58, temperature 36.3 ???C (97.3 ???F), resp. rate 13, height 1.803 m (5' 11 ), weight 96.5 kg (212 lb 11.9 oz), SpO2 94%. General: Alert and oriented x3. Cardiology: Normal rate, regular rhythm. Lungs: Clear to auscultation, no wheezes, rales or rhonchi, symmetric air entry. Abdomen: Soft, non tender, non distended. Extremities: No pitting edema. Neurology: No focal neuro deficit noted. Total time for discharge - review of data, exam, discussion with providers and care-team, med-rec and orders, arranging follow up, counseling of patient and/or family and documentation was 60 minutes. Signed Chinedu Flood MD [facility] Medicine 2024 11:37 AM CC: MEGAN Nicolas [facility] Progress note 2024 Note Date & Type Note Facility 2024 Note Cardiology Progress Note Subjective Subjective: Patient was seen and examined, reported doing well, denied having any complaints, no chest pain or shortness of breath. No acute events overnight. Objective Current Facility-Administered Medications: acetaminophen (Tylenol) tablet 650 mg, 650 mg, oral, q6h PRN, Reggie Kramer PA-C aspirin chewable tablet 81 mg, 81 mg, oral, Daily, Lukas Rivera MD atorvastatin (Lipitor) tablet 80 mg, 80 mg, oral, Daily, Lukas Rivera MD bisoproloL-hydroCHLOROthiazide (Ziac) 2.5-6.25 mg per tablet 1 tablet, 1 tablet, oral, Daily, Lukas Rivera MD clopidogrel (Plavix) tablet 75 mg, 75 mg, oral, Daily, Lukas Rivera MD heparin (porcine) injection 5,000 Units, 5,000 Units, subcutaneous, q12h NITZA, Reggie Kramer PA-C, 5,000 Units at 09/25/24 2114 melatonin tablet 5 mg, 5 mg, oral, Nightly PRN, Reggie Kramer PA-C nitroglycerin (Nitrostat) SL tablet 0.4 mg, 0.4 mg, sublingual, q5 min PRN, Lukas Rivera MD ondansetron ODT (Zofran-ODT) disintegrating tablet 4 mg, 4 mg, oral, q8h PRN OR ondansetron HCl (PF) (Zofran) injection 4 mg, 4 mg, intravenous, q6h PRN, Reggie Kramer PA-C Objective: Patient Vitals for the past 24 hrs: BP Temp Temp src Pulse Resp SpO2 Height Weight 09/26/24 0500 -- -- -- -- -- -- -- 96.5 kg (212 lb 11.9 oz) 09/26/24 0400 129/79 36.7 ???C (98 ???F) Temporal 58 13 93 % -- -- 09/26/24 0000 127/67 36.7 ???C (98.1 ???F) Temporal 54 15 -- -- -- 09/25/24 2300 97/64 -- -- 56 17 94 % -- -- 09/25/24 2200 123/76 -- -- 53 15 94 % -- -- 09/25/24 2100 129/77 -- -- 53 14 93 % -- -- 09/25/24 2000 119/70 36.7 ???C (98 ???F) Temporal 54 15 95 % -- -- 09/25/24 1900 124/72 -- Temporal 52 15 94 % -- -- 09/25/24 1800 123/74 -- -- (!) 49 13 94 % -- -- 09/25/24 1707 129/79 -- -- 51 17 96 % -- -- 09/25/24 1500 (!) 134/99 -- -- 52 10 96 % -- -- 09/25/24 1400 135/80 -- -- (!) 49 13 95 % -- -- 09/25/24 1330 133/80 -- -- (!) 47 15 -- -- -- 09/25/24 1300 135/90 -- -- 53 12 96 % -- -- 09/25/24 1230 142/87 -- -- (!) 48 16 96 % -- -- 09/25/24 1200 126/81 -- -- 53 12 96 % -- -- 09/25/24 1145 131/79 -- -- (!) 47 12 95 % -- -- 09/25/24 1144 131/79 36.2 ???C (97.2 ???F) Temporal 50 12 96 % 1.803 m (5' 11 ) 96.5 kg (212 lb 11.9 oz) 09/25/24 1115 134/86 -- -- (!) 39 10 96 % -- -- 09/25/24 1100 140/74 -- -- (!) 42 10 96 % -- -- 09/25/24 1045 124/74 -- -- (!) 48 25 95 % -- -- 09/25/24 1041 135/77 -- -- (!) 44 14 95 % -- -- 09/25/24 1033 136/72 -- -- (!) 46 13 96 % -- -- Physical Examination: Physical Exam Constitutional: General: He is not in acute distress. Appearance: He is not ill-appearing. HENT: Head: Normocephalic and atraumatic. Cardiovascular: Rate and Rhythm: Normal rate and regular rhythm. Heart sounds: Normal heart sounds. No murmur heard. Pulmonary: Effort: No respiratory distress. Breath sounds: Normal breath sounds. No wheezing or rales. Abdominal: Palpations: Abdomen is soft. Tenderness: There is no abdominal tenderness. Musculoskeletal: Cervical back: Normal range of motion and neck supple. Right lower leg: No edema. Left lower leg: No edema. Skin: General: Skin is warm and dry. Capillary Refill: Capillary refill takes less than 2 seconds. Neurological: Mental Status: He is alert and oriented to person, place, and time. Mental status is at baseline. Relevant Lab Results Encounter Date: 09/25/24 ECG 12 lead Result Value Ventricular Rate 53 Atrial Rate 53 VA Interval 194 QRS DURATION 90 QT Interval 498 QTC CALCULATION(BAZETT) 467 P [place] 44 R-[place] 41 T Wave [place] 55 Impression Sinus bradycardia with Premature supraventricular complexes Otherwise normal ECG When compared with ECG of 25-SEP-2024 07:42, VA interval has decreased Confirmed by Bette CHAMBERLAIN, ATIYA Antonio ([id number]) on 09/25/2024 4:47:43 PM No results found for: CKTOTAL , CKMB , CKMBINDEX , TROPONINI Transthoracic echo (TTE) complete Result Date: 09/25/2024 1 1 [facility] Heart Station [address] [place] [address] [phone] (fax) Echocardiogram-[facility] Name: VICKIE KING Study Date: 09/25/2024 03:11 PM B/P: 134 mmHg/99 mmHg HR: 45 bpm Date of : 1955 Location: [facility] Height: 71 in. Age: 68 year(s) Patient Room: 3122 Weight: 212 lb. Gender: Male Patient Status: OutPt BSA: 2.16 m2 Indication: Unstable angina Examination: Echocardiogram (Complete) Image Quality: Technically Difficult study in the apical views Patient Consent: Procedure explained to patient Conclusions Left Ventricle: The left ventricle is normal size. Global left ventricular systolic function is difficult to assess due to rhythm but appears preserved. The EF is 55 % visually. Left ventricular wall thickness is mildly increased. No regional wall motion abnormality. Normal diastolic function. Concentric cardiac remodeling. Right Ventricle: The right ventricl (more content not included)... [facility] Clinical Note 09-25-2024 Note Date & Type Note Facility 09-25-2024 Note Hospital Medicine History and Physical 09/25/2024 11:29 AM THE HOSPITALIST TEAM PREFERS TO USE [employer] CHAT FOR COMMUNICATION 7AM-7PM. IF I DO NOT RESPOND WITHIN 15 MINUTES, PLEASE PAGE ME/CALL THROUGH THE AIRCRAFT DELIVERY CHECKER. FROM 7PM-7AM, PLEASE PAGE [phone](COVR) Chief Complaint No chief complaint on file. History of Present Illness Vickie King is an 68 y.o. male with a PMH of CAD s/p previous stent to the RCA and HTN who presents from home for elective L heart cath d/t intermittent epigastric burning, which was of the same quality as his previous CO. He reports that this pain was not associated with eating or drinking. In the past patient had a negative stress test despite requiring stent placement. As such cardiology recommended that he proceed directly to left heart cath. Today cath showed severely calcific stenosis of the right coronary artery which was treated with balloon angioplasty and drug-eluting stent placement. He was also treated for a transient iatrogenic coronary air embolism with and aspiration. Mild disease was noted of the LAD and moderate in-stent restenosis noted of the left circumflex. It is recommended that he be admitted for close observation. He is currently chest pain-free. Review of System and Physical Exam Heart Rate: [39-50] 39 Resp: [10-25] 10 BP: (124-140)/(72-86) 134/86 Physical Exam Vitals and nursing note reviewed. Constitutional: Appearance: Normal appearance. He is obese. HENT: Head: Normocephalic. Nose: Nose normal. Mouth/Throat: Mouth: Mucous membranes are moist. Eyes: Pupils: Pupils are equal, round, and reactive to light. Cardiovascular: Rate and Rhythm: Regular rhythm. Bradycardia present. Pulses: Normal pulses. Heart sounds: Normal heart sounds. No murmur heard. No friction rub. No gallop. Pulmonary: Effort: Pulmonary effort is normal. Breath sounds: Normal breath sounds. Abdominal: General: Abdomen is flat. Bowel sounds are normal. Palpations: Abdomen is soft. Musculoskeletal: General: Normal range of motion. Cervical back: Normal range of motion. Skin: General: Skin is warm. Capillary Refill: Capillary refill takes less than 2 seconds. Comments: vitiligo Neurological: General: No focal deficit present. Mental Status: He is alert and oriented to person, place, and time. Psychiatric: Mood and Affect: Mood normal. Behavior: Behavior normal. Judgment: Judgment normal. Review of Systems Constitutional: Negative for chills and fever. Respiratory: Negative for cough and shortness of breath. Cardiovascular: Negative for chest pain. Gastrointestinal: Negative for abdominal pain, constipation, diarrhea, nausea and vomiting. Musculoskeletal: Negative for back pain. Neurological: Negative for syncope, weakness, numbness and headaches. Psychiatric/Behavioral: Negative for confusion. All other systems reviewed and are negative. Problem List Patient Active Problem List Diagnosis Date Noted Unstable angina ([facility]/HCC) 09/25/2024 Benign prostatic hyperplasia 08/21/2024 Erectile dysfunction 08/21/2024 History of coronary artery stent placement 08/21/2024 Myocardial infarction ([facility]/HCC) 08/21/2024 Frequent unifocal PVCs 01/16/2023 Abnormal EKG 04/08/2019 Essential hypertension 04/08/2019 Mixed hyperlipidemia 04/08/2019 S/P angioplasty with stent 04/08/2019 Atherosclerotic heart disease of [place] coronary artery without angina pectoris 12/11/2013 Chest pain 08/21/2024 Past Medical History Past Medical History: Diagnosis Date Abnormal ECG Coronary artery disease Hyperlipidemia Hypertension Myocardial infarction ([facility]/HCC) Past Surgical History Past Surgical History: Procedure Laterality Date CARDIAC CATHETERIZATION CORONARY STENT PLACEMENT Social History Social History Socioeconomic History Marital status: Unknown Spouse name: Not on file Number of children: Not on file Years of education: Not on file Highest education level: Not on file Occupational History Not on file Tobacco Use Smoking status: Former Types: Cigarettes Smokeless tobacco: Never Substance and Sexual Activity Alcohol use: Yes Comment: occasional Drug use: Not on file Sexual activity: Not on file Other Topics Concern Not on file Social History Narrative Not on file Social Determinants of Health Financial Resource Strain: Not on file Food Insecurity: Not on file Transportation Needs: Not on file Physical Activity: Not on file Stress: Not on file Social Connections: Not on file Intimate Partner Violence: Not on file Housing Stability: Not on file Family History family history includes Stroke in his father. Allergies has No Known Allergies. Prior to Admission Medications Medications Prior to Admission Medication Sig Dispense Refill Last Dose aspirin 81 mg chewable tablet Chew 81 mg in the morning. 09/25/2024 atorvastatin (Lipitor) 80 mg tablet Take 1 (more content not included)... [facility] Progress note 09-25-2024 Note Date & Type Note Facility 09-25-2024 Note Cardiovascular Labor atory Report FINAL IMPRESSIONS: Severe, heavily calcific stenosis of the right coronary artery successfully treated by balloon angioplasty, Shockwave intravascular lithotripsy (IVL), and Synergy drug-eluting stent placement Coronary slow flow treated with intracoronary adenosine and systemic IV Dopamine Transient, iatrogenic coronary air embolism resolved with repeat aspiration and 100% oxygen by nonrebreather Moderate in-stent restenosis of the left circumflex and obtuse marginal branch Mild disease of the left anterior descending coronary artery RECOMMENDATIONS: Close observation; the patient will be admitted to a telemetry bed with continuous monitoring of hemodynamics and electrocardiography Aspirin 81 mg lifelong; Plavix 75 mg daily for minimum of 6 months Aggressive cardiovascular risk factor modification Optimal medical therapy for coronary artery disease should include dual antiplatelet therapy, moderate to high intensity statin therapy, a beta-branden plus or minus a RAAS inhibitor A complete echocardiogram will be performed Will consider outpatient stress testing for the left circumflex stenosis versus return for elective revascularization depending on the patient's symptomatology Further recommendations deferred to the inpatient services PROCEDURES: Ultrasound-guided access to the left radial artery, bilateral selective coronary angiography via a left radial approach, percutaneous balloon angioplasty, shockwave intravascular lithotripsy, Synergy drug-eluting stent placement, intracoronary adenosine administration METHODS: After risks, benefits, and alternatives were explained, written informed consent was obtained. The patient was prepped and draped in usual sterile fashion over the left wrist. Local infiltration anesthesia was achieved of the left wrist. Using a micropuncture kit, access to the left radial artery was obtained. A 6 Colombian glide sheath was inserted without difficulty. Bilateral selective coronary angiography was performed using JR 4.0 and JL 4.0 catheters. After reviewing the images, it was elected to Proceed with an interventional procedure. A 6 Colombian JR4 guide catheter was advanced over a J-wire and coaxially engaged into the right coronary ostium. 0.014 run-through NS wire was advanced through the catheter, across the suspect stenosis and positioned distally. Balloon angioplasty was performed sequentially using a 2.5 x 15 mm NC balloon followed by 3.5 x 12 mm NC balloon. Repeat images showed an unsatisfactory result. Shockwave intravascular lithotripsy was performed using a 4.0 x 12 mm balloon. Additional noncompliant balloon angioplasty was performed using a 4.0 x 12 mm balloon. An inadequate result was treated using a 4.0 x 32 mm Synergy drug-eluting stent. Repeat images showed an optimal stent result, however there was evidence of distal slow flow. Therefore, intracoronary adenosine was administered through the guide catheter. An exchange length run-through NS wire was advanced into. A microcatheter was advanced and multiple boluses of intracoronary adenosine was administered via the microcatheter. Given low blood pressures and the need to administer adenosine, the patient was started on a dopamine drip at 5 and subsequently 7 mcg/kg/min. The patient began experiencing significant chest discomfort likely related to her ventricular stretch as well as the slow flow. A stat bedside echo revealed a preserved left ventricular systolic function with no evidence of significant pericardial effusion. Repeat images showed a slowly improving appearance of the slow flow. The microcatheter was removed. At this juncture, Retrograde echocardiography on the fluoroscopy revealed suspicion of intracoronary air embolism. Aspiration via the guide cath was performed multiple times. The patient was placed on a nonrebreather immediately. There was no evidence of ST elevations and the patient had no additional chest pain at that point. Repeat images showed improvement of the air embolism however there was a hazy appearance distal to the initially placed stent. This was treated using a 4.0 x 12 mm Synergy stent with attention paid to assure overlap of stent margins. Repeat images showed an optimal result. The wire was removed. Final images showed JORDON-3 flow with no dissection thrombus or distal wire trauma. At this point it was elected to conclude the procedure The catheters were removed. The radial sheath was removed with application of a TR band per protocol to achieve optimal hemostasis. FINDINGS: Hemodynamics: AO 119/72 [86] LEFT VENTRICULOGRAPHY: This was not performed. CORONARY ARTERIES: Left main coronary artery: This arises from the left coronary cusp and bifurcates into the left anterior descending and left circumflex coronary arteries. It is free of significant stenosis. Left anterior descending coronary artery: (more content not included)... [facility] Progress note 08-21-2024 Note Date & Type Note Facility 08-21-2024 Note [facility] Cardiology Clinic Note Chief Complaint: New patient here to establish care for CAD. He has hx of PCI in 2013. Former [facility] cardiology patient. No recent testing/labs. He states when he had CO back in 2013 he had a burning [...] Negative for ischemia at submaximal heart rate. [facility] - Cardiology Procedure VICKIE KING : 1955 AGE: 58 [facility]: [id number] SVC: CVD LOCATION: [facility] ATTENDING PHYSICIAN: Omar Birmingham M.D. DATE OF PROCEDURE: 12/12/2013 PROCEDURE PERFORMED: PTCA/drug eluting stent deployment to right coronary artery. CLINICAL HISTORY: The patient is a 58-year-old gentleman who underwent recent evaluation, including heart catheterization at [facility], after presenting with symptoms in keeping with crescendo/unstable angina. Heart catheterization revealed evidence of a 95% hazy, mid right coronary artery stenosis. The patient was stabilized with medical therapy, including intravenous unfractionated heparin, intravenous nitroglycerin, beta blockers, statins, aspirin and Plavix and transferred to [facility] for catheter based intervention. EQUIPMENT USED: 6-Colombian Amplatz left 0.75 guide catheter, 014 luge guidewire, 3.0 x 15 millimeter Emerge balloon, 3.5 x 20 millimeter PROMUS drug-eluting stent. TECHNIQUE: Under usual sterile conditions, a 6-Colombian sheath was placed in the right radial artery. The 6-Colombian Amplatz left 0.75 guide catheter was advanced [...] to the severe (more content not included)... [facility] Clinical Note 10-27-2021 Note Date & [...] depending on the pathology results. cc:Sudha Nicolas. [facility] Signed and Approved by: DR VICKIE RITTER . 10/27/2021 10:18:00 [facility] Summary Purpose Family History No Family [...] and content) DATE CREATED AUTHOR 04/26/2019 [facility] DATE CREATED AUTHOR AUTHOR'S ORGANIZ ATION 02/01/2022 [facility] DATE CREATED AUTHOR AUTHOR'S ORGANIZ ATION 07/06/2022 [facility] DATE CREATED AUTHOR AUTHOR'S ORGANIZ ATION 10/07/2024 [facility] FOR RECORDS PERTAINING TO PATIENTS WHO [...] BE BASED ON THE PRIMARY CLINICAL RECORDS. [employer] [facility]. provides no warranty or guarantee of the accuracy or completeness of information in this document.
[2024-10-16 08:55] LABS: Basophils Percent Auto 0.8 % (0.2-2.0); Eosinophils Absolute Auto 0.5 10^3/uL (0.0-0.7); Eosinophils Percent Auto 9.9 % (0.9-7.0); Hemoglobin 14.5 g/dL (14.0-18.0); Immature Granulocytes Abs Auto 0.01 10^3/uL (0.00-0.03); Immature Granulocytes Pct Auto 0.2 % (0.0-0.5); Lymphocytes Absolute Auto 0.8 10^3/uL (1.2-3.8); Lymphocytes Percent Auto 16.3 % (20.5-60.0); Mean Corpuscular Hemoglobin 31.2 pg (25.9-34.0); Mean Corpuscular Volume 94.6 fL (80.0-94.0); Mean Platelet Volume 10.1 fL (9.5-13.5); Monocytes Absolute Auto 0.6 10^3/uL (0.3-0.8); Monocytes Percent Auto 11.7 % (1.7-12.0); Neutrophils Absolute Auto 3.1 10^3/uL (1.4-6.5); Neutrophils Percent Auto 61.1 % (43.0-75.0); Platelet Count 144 10^3/uL (150-450); Red Blood Count 4.65 10^6/uL (4.70-6.10)
[2024-10-16 11:14] LABS: Alanine Aminotransferase 32 U/L (16-63); Albumin Level 3.5 g/dL (3.4-5.0); Alkaline Phosphatase 92 U/L (46-116); Anion Gap 11.4; Aspartate Amino Transferase 30 U/L (15-37); BUN Creatinine Ratio 15.7; Bilirubin Total 0.7 mg/dL (0.2-1.0); Calcium 8.9 mg/dL (8.5-10.1); Carbon Dioxide 27.9 mmol/L (21.0-32.0); Chloride 109 mmol/L (98-107); Chol HDL Ratio 2.9; Cholesterol 148 mg/dL (<=200); Estimated GFR (African America >60 (>=60 mL/min/1.73m^2); Estimated GFR (Non-African Ame >60 (>=60 mL/min/1.73m^2); Free T3 2.98 pg/mL (2.18-3.98); Globulin 3.4 g/dL; Glucose 106 mg/dL (74-106); HDL Cholesterol 51 mg/dL (40-60); LDL Cholesterol Calculated 81.8 mg/dL; Potassium 4.3 mmol/L (3.5-5.1); Sodium 144 mmol/L (136-145); Thyroid Stimulating Hormone 0.959 uIU/mL (0.358-3.740); Total Protein 6.9 g/dL (6.4-8.2); Triglycerides 76 mg/dL (<=150); Uric Acid 4.9 mg/dL (3.5-7.2); VLDL CHOLESTEROL 15.2 mg/dL
[2024-10-16 11:20] LABS: Prostate Specific Antigen Scrn 1.12 ng/mL (<=4.00)
[2024-10-16 15:56] LABS: Estimated Average Glucose 126 mg/dL
[2024-10-17 10:10] LABS: Insulin 11.4 uIU/mL (2.6-24.9)
== END 2024-10-16 08:41 | disposition home or self-care (01) ==
LOC: LAB 08:42
PROVIDERS: PCP Nurse Practitioner Family; Visit Provider Nurse Practitioner Family
DX: E78.5 Hyperlipidemia, unspecified (principal); I10 Essential (primary) hypertension; R73.09 Other abnormal glucose; Z12.5 Encounter for screening for malignant neoplasm of prostate
CPT/HCPCS: 36415; 80053; 80061; 83036; 83525; 84436; 84443; 84481; 84550; 85025; G0103